=== PATIENT | female | born 1940 | race Caucasian/White ===

== ENCOUNTER 2016-09-12 01:51 | Inpatient (IN) | payer OTHER ==
[2016-09-12] VITALS (10 sets, daily range): BP systolic 107–140; BP diastolic 56–86
[~2016-09-12] VITALS: Ht 152.4 cm; Wt 80.0 kg
[~2016-09-12 01:51] MED LIST: ASPI-COR81 M1 PO; DILTIAZEM180 MG PO; FOSAMAX70 MG PO; MOTRIN800 MG PO; PAXIL10 MG PO; TRAMADOL HCL50 MG PO
[2016-09-12] MEDS ORDERED: CALCIUM 250+D1 EACH PO (01:59)
[2016-09-12] MEDS ORDERED: CENTRUM SILVER1 EAC1 PO (02:00)
[2016-09-12 02:42] LABS: BASO % 0.2 % (0.0-1.0); EOS % 0.1 % (1.0-4.0); HEMATOCRIT 40.4 % (37.0-47.0); HEMOGLOBIN 13.2 g/dl (12.0-16.0); IG # 0.1 10*3/uL (0.0-0.1); LYMPH # 0.5 10*3/uL (1.3-4.4); LYMPH % 2.6 % (27.0-41.0); MEAN CORPUSCULAR HGB 30.1 pg (27.0-31.0); MEAN CORPUSCULAR HGB CONC 32.7 g/dl (33.0-37.0); MEAN PLATELET VOLUME 9.6 fl (9.6-12.3); MONO # 1.3 10*3/uL (0.1-1.0); MONO % 6.6 % (3.0-9.0); NEUT # 16.9 10*3/uL (2.3-7.9); NEUT % 89.9 % (47.0-73.0); PLATELET COUNT AUTOMATED 285 10*3/uL (130-400); RED BLOOD COUNT 4.39 10*6/uL (4.10-5.10); RED CELL DISTRI WIDTH 12.9 % (0-14.5); WHITE BLOOD COUNT 18.8 10*3/uL (4.8-10.8)
[2016-09-12 02:57] LABS: ALBUMIN 3.9 gm/dl (3.1-4.5); BILIRUBIN, TOTAL 0.5 mg/dl (0.2-1.0); MAGNESIUM 1.9 mg/dL (1.5-2.1); POTASSIUM 3.7 mmol/L (3.5-5.1); TOTAL PROTEIN 8.1 gm/dL (6.4-8.2)
[2016-09-12 04:39] LABS: LA>2 REFLEX 2 HR DRAW NOW
[2016-09-12 05:16] LABS: LA>2 RFLX FOLLOW UP AT 2 HRS 2.4 mmol/L (0.4-2.0)
[2016-09-12 05:29] LABS: CKMB 2.4 ng/ml (0.5-3.6); CPK 139 U/L (26-192)
[2016-09-12 05:33] LABS: TROPONIN I < 0.015 ng/ml (<0.5)
[2016-09-12 06:34] LABS: BILIRUBIN NEGATIVE (NEGATIVE); BLOOD NEGATIVE (NEGATIVE); CLARITY SL CLOUDY (CLEAR); COLOR YELLOW (YELLOW); GLUCOSE NEGATIVE (NEGATIVE); KETONE NEGATIVE (NEGATIVE); LEUKO ESTERASE 1+ (NEGATIVE); NITRITE NEGATIVE (NEGATIVE); PH 5.5 (5.0-9.0); PROTEIN NEGATIVE (NEGATIVE); SPECIFIC GRAVITY >= 1.030 (1.005-1.030); UROBILINOGEN 0.2 E.U./dl (0.2-1.0)
[2016-09-12 06:50] LABS: WBC 16-20 wbc/hpf (0-5)
[2016-09-12 06:51] LABS: BACTERIA 2+; MUCOUS 1+; URINE REFLEX COMMENT YES (NO); YEAST 1+
[2016-09-12 07:10] LABS: LA>2 REFLEX 4 HR DRAW NOW
[2016-09-12 12:19] LABS: CKMB 2.5 ng/ml (0.5-3.6); CPK 141 U/L (26-192)
[2016-09-12 12:20] LABS: TROPONIN I < 0.015 ng/ml (<0.5)
[2016-09-12 18:46] LABS: CKMB 2.4 ng/ml (0.5-3.6); CPK 138 U/L (26-192)
[2016-09-12 18:57] LABS: TROPONIN I < 0.015 ng/ml (<0.5)
[2016-09-13] VITALS: BP 109/62
[2016-09-13 07:50] LABS: BASO % 0.2 % (0.0-1.0); EOS % 0.2 % (1.0-4.0); HEMATOCRIT 34.5 % (37.0-47.0); LYMPH # 0.8 10*3/uL (1.3-4.4); LYMPH % 16.3 % (27.0-41.0); MEAN CELL VOLUME 94.3 fl (81.0-99.0); MEAN CORPUSCULAR HGB 29.5 pg (27.0-31.0); MEAN CORPUSCULAR HGB CONC 31.3 g/dl (33.0-37.0); MEAN PLATELET VOLUME 9.4 fl (9.6-12.3); MONO # 0.8 10*3/uL (0.1-1.0); MONO % 15.1 % (3.0-9.0); NEUT # 3.4 10*3/uL (2.3-7.9); NEUT % 67.8 % (47.0-73.0); RED BLOOD COUNT 3.66 10*6/uL (4.10-5.10); RED CELL DISTRI WIDTH 13.2 % (0-14.5)
[2016-09-13 07:54] LABS: PLATELET COUNT AUTOMATED 190 10*3/uL (130-400)
[2016-09-13 07:55] LABS: HEMOGLOBIN 10.8 g/dl (12.0-16.0)
[2016-09-13 07:57] LABS: INTERNATIONAL NORM RATIO 1.1 (2.0-3.5); PROTHROMBIN TIME 11.6 SECONDS (9.0-12.4)
[2016-09-13 08:00] VITALS: BP 95/65
[2016-09-13 08:21] LABS: HEMOGLOBIN A1c 5.8 % (4.8-5.6)
[2016-09-13 08:38] LABS: ALBUMIN 2.9 gm/dl (3.1-4.5); ALKALINE PHOSPHATASE 68 U/L (45-117); BILIRUBIN, TOTAL 0.4 mg/dl (0.2-1.0); CARBON DIOXIDE 27 mmol/L (21-32); CHLORIDE 109 mmol/L (98-107); CHOLESTEROL 105 mg/dL (<200); EST GLOM FILT AFRICAN AMERICAN > 60 ml/min; FREE T4 1.27 ng/dl (0.76-1.46); GLUCOSE 93 mg/dL (65-99); HDL CHOLESTEROL 48 mg/dl (40-60); LDL CHOLESTEROL 51 mg/dL (9-159); MAGNESIUM 1.9 mg/dL (1.5-2.1); PHOSPHOROUS 1.5 mg/dL (2.5-4.9); POTASSIUM 3.5 mmol/L (3.5-5.1); SGOT/AST 25 IU/L (3-35); SGPT/ALT 31 U/L (12-78); SODIUM 145 mmol/L (136-145); TOTAL PROTEIN 6.2 gm/dL (6.4-8.2); TRIGLYCERIDES 29 mg/dl (<150); VLDL CHOLESTEROL 6 mg/dL (6-40)
[2016-09-13 08:44] LABS: BUN 13 mg/dl (7-24)
[2016-09-13 09:19] LABS: FOLIC ACID > 24.00 ng/mL (>5.38); VITAMIN D, 25-HYDROXY 33.6 ng/mL (30-100)
[2016-09-13 16:00] VITALS: BP 128/73
[2016-09-13 20:00] VITALS: BP 123/69
[2016-09-14] VITALS: BP 117/66
[2016-09-14 07:26] LABS: BASO % 0.3 % (0.0-1.0); EOS # 0.1 10*3/uL (0.0-0.4); EOS % 0.9 % (1.0-4.0); HEMATOCRIT 36.2 % (37.0-47.0); HEMOGLOBIN 11.6 g/dl (12.0-16.0); LYMPH # 1.9 10*3/uL (1.3-4.4); LYMPH % 32.5 % (27.0-41.0); MEAN CELL VOLUME 92.6 fl (81.0-99.0); MEAN CORPUSCULAR HGB 29.7 pg (27.0-31.0); MEAN PLATELET VOLUME 9.4 fl (9.6-12.3); MONO # 1.1 10*3/uL (0.1-1.0); MONO % 18.9 % (3.0-9.0); NEUT # 2.8 10*3/uL (2.3-7.9); NEUT % 47.1 % (47.0-73.0); PLATELET COUNT AUTOMATED 218 10*3/uL (130-400); RED BLOOD COUNT 3.91 10*6/uL (4.10-5.10); WHITE BLOOD COUNT 5.9 10*3/uL (4.8-10.8)
[2016-09-14 08:00] VITALS: BP 106/60
[2016-09-14 08:02] LABS: ALKALINE PHOSPHATASE 81 U/L (45-117); BILIRUBIN, TOTAL 0.4 mg/dl (0.2-1.0); BUN 9 mg/dl (7-24); CARBON DIOXIDE 32 mmol/L (21-32); CHLORIDE 107 mmol/L (98-107); EST GLOM FILT AFRICAN AMERICAN > 60 ml/min; GLUCOSE 84 mg/dL (65-99); POTASSIUM 3.4 mmol/L (3.5-5.1); SGOT/AST 77 IU/L (3-35); SGPT/ALT 56 U/L (12-78); SODIUM 144 mmol/L (136-145); TOTAL PROTEIN 6.1 gm/dL (6.4-8.2)
[2016-09-14 12:00] VITALS: BP 120/60
[2016-09-14 16:00] VITALS: BP 102/54
[2016-09-14 20:00] VITALS: BP 113/61
[2016-09-15] VITALS: BP 124/84
[2016-09-15 07:23] LABS: BUN 7 mg/dl (7-24); CARBON DIOXIDE 30 mmol/L (21-32); CHLORIDE 106 mmol/L (98-107); EST GLOM FILT AFRICAN AMERICAN > 60 ml/min; GLUCOSE 96 mg/dL (65-99); POTASSIUM 3.2 mmol/L (3.5-5.1); SODIUM 144 mmol/L (136-145)
[2016-09-15 08:00] VITALS: BP 111/62
[2016-09-15] MEDS ORDERED: FLAGYL500 MG PO (11:40)
[2016-09-15] MEDS ORDERED: CIPRO500 MG PO (11:40)
[2016-09-15 12:00] VITALS: BP 123/73
== END 2016-09-15 12:56 | disposition home or self-care (01) | DRG 871 ==
LOC: ED 01:51 → EDHOLD 03:21 → 4E 03:21
PROVIDERS: Emergency Medicine Emergency Medical Services; Family Medicine Adult Medicine; Internal Medicine
DX: A41.9 Sepsis, unspecified organism (principal); N17.0 Acute kidney failure with tubular necrosis; E87.0 Hyperosmolality and hypernatremia; I47.1 Supraventricular tachycardia; E44.0 Moderate protein-calorie malnutrition; R65.20 Severe sepsis without septic shock; K52.9 Noninfective gastroenteritis and colitis, unspecified; R73.9 Hyperglycemia, unspecified; F41.0 Panic disorder [episodic paroxysmal anxiety]; D64.9 Anemia, unspecified; E83.51 Hypocalcemia; E83.39 Other disorders of phosphorus metabolism; E87.6 Hypokalemia; M19.90 Unspecified osteoarthritis, unspecified site; Z68.34 Body mass index [BMI] 34.0-34.9, adult; Z90.49 Acquired absence of other specified parts of digestive tract; Z98.890 Other specified postprocedural states; Z88.6 Allergy status to analgesic agent; Z79.82 Long term (current) use of aspirin; Z79.899 Other long term (current) drug therapy; Z80.8 Family history of malignant neoplasm of other organs or systems

== ENCOUNTER → 2016-11-11 | Outpatient (CLI) | payer OTHER ==
[~2016-11-11] MED LIST changes: +CALCIUM 250+D1 EACH PO; +CENTRUM SILVER1 EAC1 PO; +CIPRO500 MG PO; +FLAGYL500 MG PO
--- NOTE | ~2016-11-11 | ST ---
[place], [place] EXERCISE STRESS TEST REPORT NAME: MICHAEL WILL UNIT #: [id number] ROOM: DOCTOR: DENY GOLDEN MD BIRTHDATE: [birth year] DOS: 11/11/2016 INDICATIONS: Palpitations and dyspnea. PROCEDURE: The patient exercised on a full Keo protocol stress test for 4 minutes and achieved a maximum heart rate of 147, which represented 101% of her maximum predicted heart rate at a workload of 7 mets. She stopped for dyspnea and had no chest pain. The resting electrocardiogram showed sinus rhythm with frequent isolated PVCs. She did have PVCs throughout exercise, but no ventricular tachycardia or SVT. No diagnostic ST or T-wave changes were seen. One minute prior to completion of exercise protocol, radionuclide was given intravenously. IMPRESSION: 1. Adequate exercise capacity without chest pain or diagnostic electrocardiographic changes. 2. Frequent isolated premature ventricular contractions throughout the study. No supraventricular tachycardia was seen. No prolonged pauses. 3. Radionuclide was administered. Please see the separate imaging report for further details of the patient's stress test results. DENY GOLDEN MD CM:STRESS:EXERCISE STRESS TEST REPORT [id number] DENY GOLDEN MD
== END | disposition home or self-care (01) ==
LOC: CARD 03:46
DX: R06.02 Shortness of breath (principal); R00.2 Palpitations; R94.31 Abnormal electrocardiogram [ECG] [EKG]

== ENCOUNTER → 2017-01-03 | Outpatient (CLI) | payer OTHER | END | disposition home or self-care (01) | LOC: RAD 02:39 | DX: M81.0 Age-related osteoporosis without current pathological fracture (principal) ==

== ENCOUNTER → 2017-05-16 | Outpatient (CLI) | payer OTHER | END | disposition home or self-care (01) | LOC: MAMMO 11:30 | DX: Z12.31 Encounter for screening mammogram for malignant neoplasm of breast (principal) ==

== ENCOUNTER → 2018-01-17 | Outpatient (CLI) | payer OTHER ==
[2018-01-17 09:51] LABS: HEMATOCRIT 39.5 % (37.0-47.0); HEMOGLOBIN 12.8 g/dl (12.0-16.0); MEAN CELL VOLUME 95.2 fl (81.0-99.0); MEAN CORPUSCULAR HGB 30.8 pg (27.0-31.0); MEAN CORPUSCULAR HGB CONC 32.4 g/dl (33.0-37.0); MEAN PLATELET VOLUME 9.7 fl (9.6-12.3); RED BLOOD COUNT 4.15 10*6/uL (4.10-5.10); RED CELL DISTRI WIDTH 12.6 % (0-14.5); WHITE BLOOD COUNT 6.7 10*3/uL (4.8-10.8)
[2018-01-17 10:12] LABS: ALBUMIN 3.6 gm/dl (3.1-4.5); ALKALINE PHOSPHATASE 95 U/L (45-117); BUN 18 mg/dl (7-24); CHLORIDE 108 mmol/L (98-107); CHOLESTEROL 198 mg/dL (<200); CREATININE 0.94 mg/dL (0.55-1.02); HDL CHOLESTEROL 49 mg/dl (40-60); LDL CHOLESTEROL 124 mg/dL (9-159); POTASSIUM 4.1 mmol/L (3.5-5.1); SGOT/AST 12 IU/L (3-35); SGPT/ALT 19 U/L (12-78); SODIUM 144 mmol/L (136-145); TOTAL PROTEIN 7.5 gm/dL (6.4-8.2); TRIGLYCERIDES 126 mg/dl (<150); VLDL CHOLESTEROL 25 mg/dL (6-40)
== END | disposition home or self-care (01) ==
LOC: LAB 09:25
DX: M81.0 Age-related osteoporosis without current pathological fracture (principal); I47.1 Supraventricular tachycardia; H61.20 Impacted cerumen, unspecified ear; R79.89 Other specified abnormal findings of blood chemistry

== ENCOUNTER → 2018-05-24 | Outpatient (CLI) | payer OTHER | END | disposition home or self-care (01) | LOC: MAMMO 05-10 10:00 | DX: Z12.31 Encounter for screening mammogram for malignant neoplasm of breast (principal); R92.0 Mammographic microcalcification found on diagnostic imaging of breast ==

== ENCOUNTER → 2019-06-17 | Outpatient (CLI) | payer OTHER ==
[2019-06-17 09:17] LABS: HEMATOCRIT 40.8 % (37.0-47.0); HEMOGLOBIN 12.8 g/dl (12.0-16.0); MEAN CELL VOLUME 96.9 fl (81.0-99.0); MEAN CORPUSCULAR HGB 30.4 pg (27.0-31.0); MEAN CORPUSCULAR HGB CONC 31.4 g/dl (33.0-37.0); MEAN PLATELET VOLUME 9.7 fl (9.6-12.3); RED BLOOD COUNT 4.21 10*6/uL (4.10-5.10); RED CELL DISTRI WIDTH 13.2 % (0-14.5)
[2019-06-17 09:18] LABS: ALBUMIN 3.5 gm/dl (3.1-4.5); ALKALINE PHOSPHATASE 106 U/L (45-117); BUN 21 mg/dl (7-24); CHLORIDE 105 mmol/L (98-107); CHOLESTEROL 212 mg/dL (<200); CREATININE 0.84 mg/dL (0.55-1.02); HDL CHOLESTEROL 56 mg/dl (40-60); LDL CHOLESTEROL 136 mg/dL (9-159); SGOT/AST 13 IU/L (3-35); SGPT/ALT 24 U/L (12-78); SODIUM 139 mmol/L (136-145); TOTAL PROTEIN 7.3 gm/dL (6.4-8.2); TRIGLYCERIDES 98 mg/dl (<150); VLDL CHOLESTEROL 20 mg/dL (6-40)
[2019-06-17 09:44] LABS: FREE T4 0.94 ng/dl (0.76-1.46)
== END | disposition home or self-care (01) ==
LOC: LAB 08:25
PROVIDERS: Physician Assistant
DX: E55.9 Vitamin D deficiency, unspecified (principal); M81.0 Age-related osteoporosis without current pathological fracture; I47.1 Supraventricular tachycardia; I10 Essential (primary) hypertension

== ENCOUNTER → 2020-01-29 | Outpatient (CLI) | payer OTHER | END | disposition home or self-care (01) | LOC: LAB 09:51 → CARD 10:30 | DX: I47.1 Supraventricular tachycardia (principal) ==

== ENCOUNTER → 2020-02-06 | Outpatient (CLI) | payer OTHER | END | disposition home or self-care (01) | LOC: MAMMO 08:38 | DX: Z12.31 Encounter for screening mammogram for malignant neoplasm of breast (principal) ==

== ENCOUNTER → 2020-07-16 | Outpatient (CLI) | payer OTHER ==
[~2020-07-16] MED LIST changes: +CARTIA XT300 MG PO; -DILTIAZEM180 MG PO; +DILTIAZEM240 M1 PO; +PROMETHAZINE DM
== END | disposition home or self-care (01) ==
LOC: COVID19 10:50
PROVIDERS: ATTEND Physician Assistant
DX: U07.1 COVID-19 (principal)

== ENCOUNTER 2020-07-19 15:37 | Inpatient (IN) | payer OTHER ==
[~2020-07-19] VITALS: Ht 152 cm; Wt 80.8 kg
[~2020-07-19 15:37] MED LIST changes: -CARTIA XT300 MG PO; -PROMETHAZINE DM
[2020-07-19 15:59] VITALS: BP 106/64
[2020-07-19] MEDS ORDERED: PROMETHAZINE DM (16:08)
[2020-07-19] MEDS ORDERED: CARTIA XT300 MG PO (16:09)
[2020-07-19 16:34] LABS: BASO % 0.2 % (0.0-1.0); LYMPH # 0.7 10*3/uL (1.3-4.4); LYMPH % 11.8 % (27.0-41.0); MEAN CORPUSCULAR HGB 29.6 pg (27.0-31.0); MEAN CORPUSCULAR HGB CONC 31.5 g/dl (33.0-37.0); MEAN PLATELET VOLUME 9.4 fl (9.6-12.3); MONO # 0.5 10*3/uL (0.1-1.0); MONO % 8.9 % (3.0-9.0); NEUT # 4.3 10*3/uL (2.3-7.9); NEUT % 78.7 % (47.0-73.0); PLATELET COUNT AUTOMATED 206 10*3/uL (130-400); RED BLOOD COUNT 4.36 10*6/uL (4.10-5.10); RED CELL DISTRI WIDTH 12.7 % (0-14.5); WHITE BLOOD COUNT 5.5 10*3/uL (4.8-10.8)
--- NOTE | 2020-07-19 16:45 | NUR ---
eNTERED ed AT 1000 STATUSB pOST FALL. hX OF DEMENTIA. lABS DRAWN, ct DONE, ua REVEALS uti. VSS remained stable throughot time in ER. POA updated 2-3 times. Desires to have PASSWORD of "Pankaj." HX of AFib. Lungs clear. Incontinebt of stool x1,requested diaper.IV Patent. Report called to [facility] rm 506 bed 2. Dontrell COLLINS. Transfer held ndue to MS supervisor microwave requesting antibx be given prior to transfer.
[2020-07-19 16:47] LABS: ALBUMIN 3.2 gm/dl (3.1-4.5); ALKALINE PHOSPHATASE 123 U/L (45-117); BUN 18 mg/dl (7-24); CHLORIDE 110 mmol/L (98-107); CPK 49 U/L (26-192); CREATININE 0.79 mg/dL (0.55-1.02); LDH 275 U/L (84-246); POTASSIUM 3.7 mmol/L (3.5-5.1); SGOT/AST 52 IU/L (3-35); SGPT/ALT 51 U/L (12-78); SODIUM 142 mmol/L (136-145); TOTAL PROTEIN 7.4 gm/dL (6.4-8.2)
[2020-07-19 16:49] LABS: ACT PARTIAL THROMBO TIME 25.6 SECONDS (20.0-32.1)
[2020-07-19 16:53] LABS: TROPONIN I < 0.015 ng/ml (<0.045)
[2020-07-19 18:09] LABS: ABG BASE EXCESS 3.3 mmol/L (-2.0-2.0); ARTERIAL BLOOD GAS PH 7.419 (7.35-7.45)
[2020-07-19 18:34] LABS: BILIRUBIN Negative (Negative); BLOOD Negative (Negative); CLARITY Clear (Clear); COLOR Yellow (Yellow); GLUCOSE Negative (Negative); KETONE Trace (Negative); LEUKO ESTERASE 2+ (Negative); NITRITE Negative (Negative); SPECIFIC GRAVITY >= 1.030 (1.001-1.030)
[2020-07-19 18:48] LABS: BACTERIA 1+; EPITHELIAL CELLS 21-30; MUCOUS TRACE
--- NOTE | 2020-07-19 19:10 | NUR ---
REPORT REC'D. PATIENT NOTED TO BE IN ROOM 3, PATIENT COVID POSITIVE. AWAKE, ALERT, AWAITING BED AVAILIBILITY FOR ADMISSION.
--- NOTE | 2020-07-19 19:12 | NUR ---
SBAR REPORT GIVEN TO DHARMESH
[2020-07-19 19:43] VITALS: BP 117/65
--- NOTE | 2020-07-19 19:43 | NUR ---
INTRODUCED SELF TO PATIENT, VITAL SIGNS OBTAINED, STABLE FOLLOWS 117/65 PULSE 82, RESPIRATIONS 20, OXYGEN SAT 95% W/NC IN PLACE. PATIENT C/O NAUSEA AND WEAKNESS, DENIES PAIN CURRENTLY. SIDERAILS UP TIMES TWO, CALLBELL WITHIN REACH, PATIENT VERBALIZES UNDERSTANDING OF NEED TO CALL FOR RN PRIOR TO USING BEDSIDE COMMODE.
--- NOTE | 2020-07-19 21:53 | NUR ---
ADMITTING PHYSICIAN TO BEDSIDE FOR EVAL.
--- NOTE | 2020-07-20 01:09 | NUR ---
PT SITTING UP IN BED ICE CHIPS GIVEN. NAD. NO NEEDS OR CONCERNS VOICED. WILL CONTINUE TO MONITOR.
[2020-07-20 01:39] VITALS: BP 113/70
--- NOTE | 2020-07-20 01:44 | NUR ---
LOVENOX 40MG SQ TO LEFT ABD
--- NOTE | 2020-07-20 01:45 | NUR ---
HEAD TO TOE ASSESSMENT COMPLETED, PT ORIENTED TO ROOM, PT DENIES ANY PAIN OR DISCOMFORT, PT ALERT AND ORIENTED X 4, CALL LIGHT IN REACH, PT STATES SHE JUST WANTS TO GO TO SLEEP, INSTRUCTED PT HOW TO USE BED CONTROLS. PT PLEASANT, NO DISTRESS NOTED, PT'S LUNGS DIMINSHED BIBASILAR. WILL CONTINUE TO MONITOR FOR SAFETY.
--- NOTE | 2020-07-20 01:51 | NUR ---
ROCEPHIN 1G IVP OVER 5 MINUTES, UNABLE TO CHART ON OCT.
--- NOTE | 2020-07-20 02:20 | NUR ---
ZITHROMAX 500MG/250CC'S VOLUME UP ON PUMP TO INFUSE OVER ONE HOUR, UNABLE TO DOCUMENT ON OCT. PATIENT TO FLOOR, REPORT UPDATED TO NURSE.
[2020-07-20 06:38] LABS: BASO % 0.2 % (0.0-1.0); HEMATOCRIT 41.3 % (37.0-47.0); LYMPH # 0.4 10*3/uL (1.3-4.4); LYMPH % 7.1 % (27.0-41.0); MEAN CELL VOLUME 94.9 fl (81.0-99.0); MEAN CORPUSCULAR HGB 29.4 pg (27.0-31.0); MEAN PLATELET VOLUME 9.4 fl (9.6-12.3); MONO # 0.3 10*3/uL (0.1-1.0); MONO % 4.1 % (3.0-9.0); NEUT # 5.3 10*3/uL (2.3-7.9); NEUT % 88.1 % (47.0-73.0); PLATELET COUNT AUTOMATED 204 10*3/uL (130-400); RED BLOOD COUNT 4.35 10*6/uL (4.10-5.10); RED CELL DISTRI WIDTH 12.7 % (0-14.5); WHITE BLOOD COUNT 6.1 10*3/uL (4.8-10.8)
[2020-07-20 06:54] LABS: ALBUMIN 3.1 gm/dl (3.1-4.5); BUN 17 mg/dl (7-24); CHLORIDE 108 mmol/L (98-107); CHOLESTEROL 139 mg/dL (<200); CREATININE 0.78 mg/dL (0.55-1.02); POTASSIUM 4.3 mmol/L (3.5-5.1); SGOT/AST 55 IU/L (3-35); SODIUM 143 mmol/L (136-145); TRIGLYCERIDES 62 mg/dl (<150); VLDL CHOLESTEROL 12 mg/dL (6-40)
[2020-07-20 06:57] LABS: ALKALINE PHOSPHATASE 133 U/L (45-117); HDL CHOLESTEROL 51 mg/dl (40-60); LDL CHOLESTEROL 76 mg/dL (9-159); SGPT/ALT 54 U/L (12-78)
[2020-07-20 08:00] VITALS: BP 114/60
--- NOTE | 2020-07-20 08:09 | NUR ---
CONSULTS TO ID AND PULM CALLED AND COMPLETED.
[2020-07-20 09:53] LABS: VITAMIN D, 25-HYDROXY 69.4 ng/mL (30-100)
[2020-07-20 12:00] VITALS: BP 113/58
--- NOTE | 2020-07-20 13:37 | NUR ---
Spray Maker in to talk to patient. Patient states lives at home with . There are no steps in the home. Physician: mandy ogden [facility] Home health services: none Patient's level of ADLs: INDEPENDENT Patient has working utilities: all working DME: none Follow-up physician's appointment after d/c: will be made by hospitalist nurse director upon discharge Does patient want to access PORTAL?: no Discharge plan discussed with patient, she lives at home with , she is independent in adls and ambulation, no home oxygen, she states she will return home when discharged and denies any home needs, case management will follow for any change in condition or any home needs. GLENNA CHRISTIAN
[2020-07-20 16:00] VITALS: BP 121/62
--- NOTE | 2020-07-20 17:58 | NUR ---
PT HR IN 120'S FOR A SHORT TIME. PT HAVING BM AT THE TIME HR WAS ELEVATED. PT RESTING COMFORTABLY IN BED A THIS TIME
[2020-07-20 20:00] VITALS: BP 119/70
[2020-07-21] VITALS: BP 126/66
[2020-07-21 03:00] LABS: ABG BASE EXCESS 2.5 mmol/L (-2.0-2.0); ARTERIAL BLOOD GAS PH 7.425 (7.35-7.45)
[2020-07-21 06:27] LABS: ALBUMIN 2.8 gm/dl (3.1-4.5); ALKALINE PHOSPHATASE 112 U/L (45-117); BUN 24 mg/dl (7-24); CHLORIDE 111 mmol/L (98-107); CREATININE 0.69 mg/dL (0.55-1.02); POTASSIUM 3.8 mmol/L (3.5-5.1); SGOT/AST 46 IU/L (3-35); SGPT/ALT 49 U/L (12-78); SODIUM 145 mmol/L (136-145)
[2020-07-21 06:35] LABS: RED CELL DISTRI WIDTH 12.6 % (0-14.5)
[2020-07-21 06:36] LABS: HEMATOCRIT 38.3 % (37.0-47.0); LYMPH # 0.5 10*3/uL (1.3-4.4); LYMPH % 7.1 % (27.0-41.0); MEAN CELL VOLUME 94.3 fl (81.0-99.0); MEAN CORPUSCULAR HGB 29.6 pg (27.0-31.0); MEAN CORPUSCULAR HGB CONC 31.3 g/dl (33.0-37.0); MEAN PLATELET VOLUME 9.8 fl (9.6-12.3); MONO # 0.6 10*3/uL (0.1-1.0); NEUT # 5.9 10*3/uL (2.3-7.9); NEUT % 84.5 % (47.0-73.0); PLATELET COUNT AUTOMATED 226 10*3/uL (130-400); RED BLOOD COUNT 4.06 10*6/uL (4.10-5.10)
[2020-07-21 07:30] LABS: ABG BASE EXCESS 3.9 mmol/L (-2.0-2.0); ARTERIAL BLOOD GAS PH 7.431 (7.35-7.45)
[2020-07-21 08:00] VITALS: BP 133/73
--- NOTE | 2020-07-21 10:20 | NUR ---
PT AAOX3. PT'S POX WILL DROP INTO 70'S ON 10 LITER HIGH HIREN OXYGEN WITH ANY EXERTION OR EVEN SPEAKING. PT INSTRUCTED ON BENEFITS OF PRONING AND PT AGREED TO TRY. PT PRONED ON 10 LITERS HIGH HIREN. POX UP TO 90%. DR JESSICA IN TO SEE PT. UPDATED HER ON PT'S CONDITION. PLACED PT BACK TO BIPAP. DR COLEY IN TO SEE PT AFTER DR JESSIAC LEFT. UPDATED DR COLEY ON PT'S DROPPING POX. ORDER RECEIVED TO TRANSFER PT TO ICCU. PT TRANSFERED TO ICCU. PT REPORT GIVEN TO RECEIVING NURSE.
--- NOTE | 2020-07-21 10:30 | NUR ---
Received into icu-1 via bed. Alert and oriented times three. Remains on bi-pap 16/12 with fio2 80%. Encouraged to prone. Did lay on her side. Pb rales heard in bilateral lower lung sales.
[2020-07-21 12:00] VITALS: BP 137/74
[2020-07-21 13:39] LABS: ABG BASE EXCESS 2.8 mmol/L (-2.0-2.0); ARTERIAL BLOOD GAS PH 7.426 (7.35-7.45)
[2020-07-21 16:00] VITALS: BP 165/79
[2020-07-21 17:45] LABS: ABG BASE EXCESS 4.2 mmol/L (-2.0-2.0); ARTERIAL BLOOD GAS PH 7.439 (7.35-7.45)
--- NOTE | 2020-07-21 19:09 | NUR ---
DR. CLAIRE NOTIFIED OF BP 160'S SYSTOLIC AND HEART RATE LOW 100'S
--- NOTE | 2020-07-21 19:12 | NUR ---
CHART CHECK COMPLETE.
[2020-07-21 19:56] LABS: ABG BASE EXCESS 3.4 mmol/L (-2.0-2.0); ARTERIAL BLOOD GAS PH 7.455 (7.35-7.45)
[2020-07-21 20:00] VITALS: BP 145/83
--- NOTE | 2020-07-21 20:29 | NUR ---
ARABELLA FROM [facility] DEPT, NOTIFIED DR COLEY OF ABG RESULTS.
--- NOTE | 2020-07-21 20:33 | NUR ---
PT RESTING ON 15 L HIGH FLOW NASAL CANNULA.
--- NOTE | 2020-07-21 22:31 | NUR ---
PT PLACED BACK ON BIPAP MACHINE ORDERED.
[2020-07-22] VITALS: BP 155/75
--- NOTE | 2020-07-22 02:23 | NUR ---
PT TOILETED FOR 300 CC URINE ON BEDPAN. NO ACUTE DISTRESS.
[2020-07-22 04:00] VITALS: BP 139/88
--- NOTE | 2020-07-22 05:57 | NUR ---
PT HAS SLEPT MOST OF THE NIGHT. AWAKENED EASILY FOR NURSING ASSESSMENTS/CARE. HAS WORN BIPAP ALL NIGHT. ICE CHIPS GIVEN AND RETURNED TO BIPAP THEREAFTER. SHE IS AWARE OF PLAN FOR ABG'S THIS AM. SHE SAYS SHE IS GOING TO SEE IF "THEY'LL LET (HER) HAVE SOMETHING FOR NERVES." STATES SHE HAS A LOT ON HER MIND WITH OTHER SICK FAMILY MEMBERS. HER CELL PHONE AT BEDSIDE.
[2020-07-22 06:19] LABS: BASO % 0.1 % (0.0-1.0); HEMATOCRIT 38.5 % (37.0-47.0); LYMPH # 0.5 10*3/uL (1.3-4.4); LYMPH % 5.4 % (27.0-41.0); MEAN CORPUSCULAR HGB CONC 32.2 g/dl (33.0-37.0); MEAN PLATELET VOLUME 9.9 fl (9.6-12.3); MONO % 10.8 % (3.0-9.0); NEUT % 83.2 % (47.0-73.0); PLATELET COUNT AUTOMATED 264 10*3/uL (130-400); RED BLOOD COUNT 4.14 10*6/uL (4.10-5.10); RED CELL DISTRI WIDTH 12.6 % (0-14.5); WHITE BLOOD COUNT 9.6 10*3/uL (4.8-10.8)
[2020-07-22 06:38] LABS: ALBUMIN 2.8 gm/dl (3.1-4.5); BUN 26 mg/dl (7-24); CHLORIDE 113 mmol/L (98-107); LDH 408 U/L (84-246); POTASSIUM 3.7 mmol/L (3.5-5.1); SGOT/AST 53 IU/L (3-35); SGPT/ALT 54 U/L (12-78); SODIUM 146 mmol/L (136-145); TOTAL PROTEIN 6.9 gm/dL (6.4-8.2)
[2020-07-22 06:39] LABS: ALKALINE PHOSPHATASE 121 U/L (45-117); CREATININE 0.61 mg/dL (0.55-1.02)
--- NOTE | 2020-07-22 07:30 | NUR ---
PER PT REQUEST, POST ABG DRAW PT TAKEN OFF BIPAP AND PLACED ON 15L HFNC. MARIELLE. WELL AT THIS TIME, SATS 90-91%
[2020-07-22 07:49] LABS: ABG BASE EXCESS 3.5 mmol/L (-2.0-2.0); ARTERIAL BLOOD GAS PH 7.436 (7.35-7.45)
[2020-07-22 08:00] VITALS: BP 136/82
--- NOTE | 2020-07-22 08:00 | NUR ---
PT AAOX3. VSS. PT REMIANS ON BIPAP FIO2 70%. POX 94%. PT DESATS INTO 70'S WITH MINIMAL EXERTION. FINE PB RALES NOTED IN RIGHT BASE. PT STATES SHE HAS AN INFREQUENT COUGH PRODUCTIVE OF YELOWISH-WHITE MUCUS. ABD. SOFT WITH ACTIVE BOWEL SOUNDS. PT HAS HAD A FEW DIARRHEA STOOLS. BILATERAL LOWER LEG EDEMA NOTED. WILL CONTINUE TO MONITOR PT.
--- NOTE | 2020-07-22 09:00 | NUR ---
patient is a covid +, on bipap, she would like to return home when discharged, case management will follow in case patient would need another discharge plan. case management will follow
--- NOTE | 2020-07-22 09:30 | NUR ---
DR JESSICA IN TO SEE PT.
--- NOTE | 2020-07-22 10:30 | NUR ---
DR COLEY IN TO SEE PT. NEW ORDERS RECEIVED.
[2020-07-22 12:00] VITALS: BP 133/61
--- NOTE | 2020-07-22 14:20 | NUR ---
MEDICATED PT PER 1X ORDER WITH XANAX FOR PT'S C/O ANXIETY. KDUR 40MEQ GIVEN TO PT EARLIER PER ORDER.
[2020-07-22 16:00] VITALS: BP 129/59
--- NOTE | 2020-07-22 16:09 | NUR ---
PT RESTING. NO ACUTE DISTRESS NOTED.
[2020-07-22 20:00] VITALS: BP 132/60
--- NOTE | 2020-07-22 20:00 | NUR ---
PT RESTING IN BED AWAKE, A&O, PLEASANT AND COOPERATIVE. RESP LAOBRED WITH MINIMAL EXERTION. NO ACUTE DISTRESS NOTED. NO COMPLAINTS VOICED. ART LINE AND HEPLOCK PATENT.
[2020-07-23] VITALS (15 sets, daily range): BP systolic 72–161; BP diastolic 43–77
[2020-07-23 06:17] LABS: BASO % 0.1 % (0.0-1.0); HEMATOCRIT 37.5 % (37.0-47.0); LYMPH # 0.4 10*3/uL (1.3-4.4); LYMPH % 3.6 % (27.0-41.0); MEAN CELL VOLUME 92.8 fl (81.0-99.0); MEAN CORPUSCULAR HGB 29.2 pg (27.0-31.0); MEAN CORPUSCULAR HGB CONC 31.5 g/dl (33.0-37.0); MEAN PLATELET VOLUME 10.1 fl (9.6-12.3); NEUT # 9.7 10*3/uL (2.3-7.9); NEUT % 86.7 % (47.0-73.0); PLATELET COUNT AUTOMATED 240 10*3/uL (130-400); RED BLOOD COUNT 4.04 10*6/uL (4.10-5.10); RED CELL DISTRI WIDTH 12.6 % (0-14.5); WHITE BLOOD COUNT 11.2 10*3/uL (4.8-10.8)
[2020-07-23 06:37] LABS: ALBUMIN 2.7 gm/dl (3.1-4.5); ALKALINE PHOSPHATASE 120 U/L (45-117); BUN 26 mg/dl (7-24); CHLORIDE 115 mmol/L (98-107); LDH 502 U/L (84-246); SGOT/AST 50 IU/L (3-35); SGPT/ALT 51 U/L (12-78); SODIUM 149 mmol/L (136-145); TOTAL PROTEIN 6.8 gm/dL (6.4-8.2)
[2020-07-23 07:22] LABS: ABG BASE EXCESS 3.4 mmol/L (-2.0-2.0); ARTERIAL BLOOD GAS PH 7.396 (7.35-7.45)
--- NOTE | 2020-07-23 08:00 | NUR ---
AM ASSESSMENT DONE - PATIENT DISCUSSED PRONING & BIPAP USE D/T SATS DROPPING TO THE 70'S ON HFNC..PATIENT VOICED UNDERSTANDING
[2020-07-23 13:10] LABS: ABG BASE EXCESS 4.7 mmol/L (-2.0-2.0); ARTERIAL BLOOD GAS PH 7.442 (7.35-7.45)
--- NOTE | 2020-07-23 14:30 | NUR ---
DISCUSSED WITH THE PATIENT THAT SHE NEEDED TO GO ON THE VENTILATOR & A MLC WAS TO BE PLACED - VOICED UNDERSTANDING & AGREED. DAUGHTER VITOR CALLED AND SHE AGREED WITH THE TREATMENT
--- NOTE | 2020-07-23 15:00 | NUR ---
Infomed consent obtained from patient by Dr. COLEY for elective intubation. Patient intubated with Other endotracheal tube orally X 1 attempts. Patient sedated with SUCC & DIPRIVAN Respiratory therapy at bedside. Crash cart with emergency drugs available. Endotracheal tube inflated with 10cc's. Lungs auscultated for equality of breath sounds. Tube secured with Trach Ties at 21cm's. at level of LIP. Patient tolerated procedure FAIR. Portable chest X-ray obtained and reviewed for tube placement. Patient connected to ventilator CMV mode, 380 tidal volume, 100 FIO2, 10 PEEP, and 0 pressure support. PATIENT ALSO AGREED TO MLC WHICH WAS PLACED BY DR LORA IN [facility] WITHOUT DIFFICULTY BRENNAN JOEL
--- NOTE | 2020-07-23 17:25 | NUR ---
AWAITING CXR REPORT FOR PLACEMENT OF LINES PRIOR TO PRONING
[2020-07-23 17:27] LABS: ARTERIAL BLOOD GAS PH 7.395 (7.35-7.45)
--- NOTE | 2020-07-23 19:00 | NUR ---
PATIENT PRONEDP KENDY AT 50mcg & NIMBEX AT 0.7..ABG TO BE DONE 2 HOURS AFTER PRONING PER DR COLEY
[2020-07-23 20:35] LABS: ABG BASE EXCESS 2.9 mmol/L (-2.0-2.0); ARTERIAL BLOOD GAS PH 7.364 (7.35-7.45)
--- NOTE | 2020-07-23 22:00 | NUR ---
PATIENT MOVING AROUND AND BREATHING ABOVE THE VENT NIMBEX INCREASED TO 2 MCQ'S AT THIS TIME.
[2020-07-24] VITALS (26 sets, daily range): BP systolic 94–172; BP diastolic 52–85
[2020-07-24 06:05] LABS: BASO % 0.1 % (0.0-1.0); LYMPH # 0.4 10*3/uL (1.3-4.4); LYMPH % 5.9 % (27.0-41.0); MEAN CELL VOLUME 94.2 fl (81.0-99.0); MEAN CORPUSCULAR HGB 29.6 pg (27.0-31.0); MEAN CORPUSCULAR HGB CONC 31.5 g/dl (33.0-37.0); MEAN PLATELET VOLUME 10.6 fl (9.6-12.3); MONO # 0.6 10*3/uL (0.1-1.0); NEUT % 85.2 % (47.0-73.0); PLATELET COUNT AUTOMATED 222 10*3/uL (130-400); RED BLOOD COUNT 3.61 10*6/uL (4.10-5.10); RED CELL DISTRI WIDTH 12.5 % (0-14.5); WHITE BLOOD COUNT 7.1 10*3/uL (4.8-10.8)
[2020-07-24 06:18] LABS: ALBUMIN 1.8 gm/dl (3.1-4.5); ALKALINE PHOSPHATASE 80 U/L (45-117); BUN 24 mg/dl (7-24); CHLORIDE 121 mmol/L (98-107); CPK 33 U/L (26-192); LDH 339 U/L (84-246); POTASSIUM 3.1 mmol/L (3.5-5.1); SGOT/AST 33 IU/L (3-35); SGPT/ALT 39 U/L (12-78); SODIUM 156 mmol/L (136-145); TOTAL PROTEIN 4.7 gm/dL (6.4-8.2)
--- NOTE | 2020-07-24 06:54 | NUR ---
CALLED DOCTOR BLAIR WITH [facility] HE SAID THANK YOU.
--- NOTE | 2020-07-24 07:27 | NUR ---
PHYSICAL THERAPY Screen received pt admitted with pneumonia + for COVID per medical notes pt was intubated 07/23, please consult PT as pt medically appropriate thank you Nicole Alas PT
[2020-07-24 07:34] LABS: ABG BASE EXCESS 3.9 mmol/L (-2.0-2.0); ARTERIAL BLOOD GAS PH 7.419 (7.35-7.45)
--- NOTE | 2020-07-24 10:11 | NUR ---
Nursing screen received and chart was reviewed. Patient is a 80 y/o F admitted with pnemonia and (+) Cornoavirus. Brady has a past medical history of arthritis, anxiety, depression, normacytic anemia and SVT. Patient was indubated on 07/23. Please send OT orders when patient is medically appropraite. Thank you. Karolina Lubin OTR/L
--- NOTE | 2020-07-24 10:27 | NUR ---
CONDITION DISCUSSED WITH DR COLEY. ORDERS RECEIVED.
--- NOTE | 2020-07-24 12:00 | NUR ---
TUBE FEEDINGS ORDERED AT 20CC/HR.
--- NOTE | 2020-07-24 12:27 | NUR ---
DR COLEY VISITS.
[2020-07-24 13:07] LABS: ABG BASE EXCESS 3.8 mmol/L (-2.0-2.0); ARTERIAL BLOOD GAS PH 7.357 (7.35-7.45)
--- NOTE | 2020-07-24 13:37 | NUR ---
FAMILY MEMBER, VITOR, CALLS IN. UPDATED ON PT CONDITION.
--- NOTE | 2020-07-24 18:31 | NUR ---
DUODERM TO PT'S FACE TO PREPARE FOR PRONING AT 1900.
--- NOTE | 2020-07-24 18:32 | NUR ---
PT TACHYCARDIC W/ INCREASED BP, AFTER TURNING, VERSED 5MG IV GIVEN W/ GOOD RESULTS
[2020-07-24 18:40] LABS: CHLORIDE 111 mmol/L (98-107); CREATININE 0.74 mg/dL (0.55-1.02); SODIUM 145 mmol/L (136-145)
[2020-07-24 18:45] LABS: BUN 35 mg/dl (7-24); POTASSIUM 4.8 mmol/L (3.5-5.1)
--- NOTE | 2020-07-24 19:08 | NUR ---
PT PRONED ORDERED.
--- NOTE | 2020-07-24 19:17 | NUR ---
PT ZEFERINO, DR COLEY NOTIFIED OF BMP, NO ORDERS PENDING
--- NOTE | 2020-07-24 20:00 | NUR ---
PT RESTING IN BED IN PRONED POSITION. ENDOTUBE PATENT, TIES SECURE, VENT SETTINGS VERIFIED AND FUNCTIONING WITHOUT DIFFICULTY. OGT PATENT. RIGHT IJ MLC AND LEFT RADIAL ARTLINE PATENT, DRESSINGS DRY AND INTACT. CHO PATENT FOR CLEAR YELLOW URINE. NO ACUTE DISTRESS NOTED. PT SEDATED WITH DIPRIVAN AND NIMBEX AND EFFECTIVE. ISOLATION PRECAUTIONS MAINTAINED.
[2020-07-24 21:46] LABS: ABG BASE EXCESS 3.8 mmol/L (-2.0-2.0); ARTERIAL BLOOD GAS PH 7.329 (7.35-7.45)
[2020-07-25] VITALS (24 sets, daily range): BP systolic 91–169; BP diastolic 57–85
--- NOTE | 2020-07-25 03:00 | NUR ---
MEDICATED WITH VERSED PER PRN ORDER FOR SEDATION.
[2020-07-25 06:00] LABS: BASO % 0.1 % (0.0-1.0); HEMATOCRIT 33.6 % (37.0-47.0); LYMPH # 0.3 10*3/uL (1.3-4.4); LYMPH % 4.1 % (27.0-41.0); MEAN CELL VOLUME 94.9 fl (81.0-99.0); MEAN CORPUSCULAR HGB 30.2 pg (27.0-31.0); MEAN CORPUSCULAR HGB CONC 31.8 g/dl (33.0-37.0); MEAN PLATELET VOLUME 10.5 fl (9.6-12.3); MONO # 0.5 10*3/uL (0.1-1.0); MONO % 6.9 % (3.0-9.0); NEUT % 87.7 % (47.0-73.0); PLATELET COUNT AUTOMATED 208 10*3/uL (130-400); RED BLOOD COUNT 3.54 10*6/uL (4.10-5.10); RED CELL DISTRI WIDTH 12.3 % (0-14.5); WHITE BLOOD COUNT 6.8 10*3/uL (4.8-10.8)
[2020-07-25 06:12] LABS: ALBUMIN 3.5 gm/dl (3.1-4.5); ALKALINE PHOSPHATASE 84 U/L (45-117); BUN 36 mg/dl (7-24); CHLORIDE 106 mmol/L (98-107); CPK 42 U/L (26-192); CREATININE 0.72 mg/dL (0.55-1.02); LDH 335 U/L (84-246); POTASSIUM 4.2 mmol/L (3.5-5.1); SGOT/AST 27 IU/L (3-35); SGPT/ALT 48 U/L (12-78); SODIUM 145 mmol/L (136-145); TOTAL PROTEIN 6.8 gm/dL (6.4-8.2)
[2020-07-25 07:35] LABS: ABG BASE EXCESS 8.8 mmol/L (-2.0-2.0); ARTERIAL BLOOD GAS PH 7.452 (7.35-7.45)
--- NOTE | 2020-07-25 09:25 | NUR ---
PT GIVEN VERSED FOR TACHYCARDIA AND INCREASED BP
[2020-07-25 14:25] LABS: ABG BASE EXCESS 7.7 mmol/L (-2.0-2.0); ARTERIAL BLOOD GAS PH 7.375 (7.35-7.45)
--- NOTE | 2020-07-25 14:59 | NUR ---
AFTER PRONING PT WAS GIVEN A SEDATION VACATION, SHOOK HEAD YES AND NO APPROPRIATLY, ATTEMPT TO OPEN EYES, CAN RAISE EYBROWS, VENT REMAINS INTACT, PALPABLE sq EMPHYSEMA NOTED TO L NECK, TURNED AND REPOSITIONED
--- NOTE | 2020-07-25 15:28 | NUR ---
PT GETS TACHYCARDIC AND HYPERTENSIVE AFTER TURNING AND REPOSITIONING, VERSED 5MG IV GIVEN PER PRN ORDER
--- NOTE | 2020-07-25 15:45 | NUR ---
VERSED EFFECTIVE FOR AGGITATION
--- NOTE | 2020-07-25 16:47 | NUR ---
TEDS APPLIED TO PATIENT
--- NOTE | 2020-07-25 17:44 | NUR ---
DR CLAIRE NOTIFIED OF PRESSURE SORE
--- NOTE | 2020-07-25 18:56 | NUR ---
PT WITH INCREASED PULSE AND HEARTRATE AFTER TURNING, VERSED 5MG GIVEN FOR INCREASED AGGITATION
--- NOTE | 2020-07-25 20:00 | NUR ---
PT RESTING IN BED WITH EYES CLOSED, ENDOTUBE PATENT, TIES SECURE, VENT SETTINGS VERIFIED AND VENT FUNCTIONING WITHOUT DIFFICULTY. RIGHT IJ MLC AND LEFT RADIAL ART LINE PATENT, DRESSINGS DRY AND INTACT.CHO PATENT FOR DARK TIMI URINE. OGT PATENT, PLACEMENT VERIFIED VIA AIR BOLUS AND TF INFUSING ORDERED AND MARIELLE WELL. DIPRIVAN AND NIMBEX INFUSING FOR SEDATION AND EFFECTIVE. NO ACUTE DISTRESS NOTED AT THIS TIME. ISOLATION PRECAUTIONS MAINTAINED.
--- NOTE | 2020-07-25 23:10 | NUR ---
MEDICATED WITH VERSED PER PRN ORDER FOR SEDATION.
[2020-07-26] VITALS (25 sets, daily range): BP systolic 86–142; BP diastolic 54–82
[2020-07-26 06:02] LABS: ALBUMIN 3.2 gm/dl (3.1-4.5); ALKALINE PHOSPHATASE 82 U/L (45-117); CHLORIDE 107 mmol/L (98-107); CREATININE 0.94 mg/dL (0.55-1.02); LDH 349 U/L (84-246); POTASSIUM 4.8 mmol/L (3.5-5.1); SGOT/AST 35 IU/L (3-35); SGPT/ALT 54 U/L (12-78); SODIUM 144 mmol/L (136-145); TOTAL PROTEIN 6.4 gm/dL (6.4-8.2)
[2020-07-26 06:07] LABS: BASO % 0.2 % (0.0-1.0); HEMATOCRIT 34.7 % (37.0-47.0); LYMPH # 0.3 10*3/uL (1.3-4.4); LYMPH % 2.7 % (27.0-41.0); MEAN CELL VOLUME 97.2 fl (81.0-99.0); MEAN CORPUSCULAR HGB CONC 30.8 g/dl (33.0-37.0); MEAN PLATELET VOLUME 11.1 fl (9.6-12.3); MONO # 0.9 10*3/uL (0.1-1.0); MONO % 8.6 % (3.0-9.0); NEUT # 9.4 10*3/uL (2.3-7.9); NEUT % 86.6 % (47.0-73.0); PLATELET COUNT AUTOMATED 203 10*3/uL (130-400); RED BLOOD COUNT 3.57 10*6/uL (4.10-5.10); RED CELL DISTRI WIDTH 12.4 % (0-14.5); WHITE BLOOD COUNT 10.8 10*3/uL (4.8-10.8)
[2020-07-26 06:10] LABS: BUN 67 mg/dl (7-24); CPK 108 U/L (26-192)
[2020-07-26 08:04] LABS: ABG BASE EXCESS 7.9 mmol/L (-2.0-2.0); ARTERIAL BLOOD GAS PH 7.374 (7.35-7.45)
--- NOTE | 2020-07-26 09:11 | NUR ---
UNABLE TO OBTAIN BREATH MANEUVER MEASUREMENTS. PATIENT IS SEDATED, BUT STILL SLIGHTLY CONSCIOUS TO MESS WITH READING.
--- NOTE | 2020-07-26 11:00 | NUR ---
DR SIFUENTES IN TO SEE PT AND AWARE OF ELEVATED TEMP OF 100.6
--- NOTE | 2020-07-26 11:40 | NUR ---
PT HEART RATE UP TO 120'S. VERSED 5MG IV GIVEN FOR SEDATION.
--- NOTE | 2020-07-26 11:42 | NUR ---
PT MEDICATED WITH TYLENOL 650MG VIA OGT DUE TO TEMP OF 100.9 AND HEART RATE UP TO 120'S.
--- NOTE | 2020-07-26 13:58 | NUR ---
DRESSING APPLIED TO CHIN WOUND PER PHYSICIANS ORDERS.
--- NOTE | 2020-07-26 15:43 | NUR ---
PT MEDICATED WITH TYLENOL 650MG VIA OGT FOR TEMP OF 101.5 WITH HEART RATE OF 130.
--- NOTE | 2020-07-26 17:44 | NUR ---
I PAGED DR SIFUENTES AT THIS TIME TO MAKE HER AWARE OF PT'S TEMP CONTINUING TO RISE AND IS NOW 101.7 AND HEART RATE 128.
--- NOTE | 2020-07-26 20:00 | NUR ---
PT RESTING IN BED WITH EYES CLOSED ENDOTUBE PATENT, TIES SECURE, VENT SETTINGS VERIFIED AND FUNCTIONING WITHOUT DIFFICULTY. RIGHT IN MLC AND LEFT ARTLINE PATENT, DRESSINGS DRY AND INTACT, CHO PATENT FOR DARK TIMI URINE. OGT PATENT, PLACEMENT VERIFIED VIA AIR BOLUS. TF INFUSING AND MARIELLE WELL. NO S/S OF HYPO/HYPERGLYCEMIA NOTED. ISOLATION PRECAUTIONS MAINTAINED.
--- NOTE | 2020-07-26 20:00 | NUR ---
DR SIFUENTES CALLED AND NEW ORDERS RECEIVED. OBTAIN 2 SETS OF BLOOD CULTURES, 1 FROM MLC AND ANOTHER FROM VENOUS SITE. VANCO WITH PHARMACY TO DOSE. OBTAIN SPUTUM CULTURE.
--- NOTE | 2020-07-26 20:40 | NUR ---
MEDICATED WITH TYLENOL PER PRN ORDER FOR T 102.0 AND XANAX PER PRN ORDER FOR AGITATION.
[2020-07-27] VITALS (25 sets, daily range): BP systolic 86–140; BP diastolic 57–75
--- NOTE | 2020-07-27 | NUR ---
XANAX EFFECTIVE FOR AGITATION. TYLENOL INEFFECTIVE FOR TEMP.
--- NOTE | 2020-07-27 01:15 | NUR ---
MEDICATED WITH TYLENOL PER PRN ORDER FOR TEMP 101.8.
--- NOTE | 2020-07-27 04:00 | NUR ---
TYLENOL EFFECTIVE FOR TEMP.
[2020-07-27 05:58] LABS: HEMATOCRIT 29.2 % (37.0-47.0); MEAN CELL VOLUME 95.1 fl (81.0-99.0); MEAN CORPUSCULAR HGB CONC 31.5 g/dl (33.0-37.0); MEAN PLATELET VOLUME 11.9 fl (9.6-12.3); NUCLEATED RED BLOOD CELL 0.1 10*3/uL (0.0-0.0); NUCLEATED RED BLOOD CELL 0.4 % (0.0-0.0); PLATELET COUNT AUTOMATED 162 10*3/uL (130-400); RED BLOOD COUNT 3.07 10*6/uL (4.10-5.10); RED CELL DISTRI WIDTH 12.3 % (0-14.5); WHITE BLOOD COUNT 12.3 10*3/uL (4.8-10.8)
[2020-07-27 06:15] LABS: ALBUMIN 3.3 gm/dl (3.1-4.5); CREATININE 1.09 mg/dL (0.55-1.02); POTASSIUM 4.6 mmol/L (3.5-5.1); TOTAL PROTEIN 6.3 gm/dL (6.4-8.2)
[2020-07-27 07:28] LABS: PLATELET SUFFICIENCY NORMAL (NORMAL); TOTAL CELLS COUNTED 100 #CELLS
--- NOTE | 2020-07-27 08:23 | NUR ---
PHYSICAL THERAPY Pt admitted with pnumonia with COVID per medical notes 07/26 pt is sedated on ventilator,please consult PT as/if medically appropriate thank you Nicole Alas PT
[2020-07-27 08:28] LABS: ABG BASE EXCESS 7.7 mmol/L (-2.0-2.0); ARTERIAL BLOOD GAS PH 7.383 (7.35-7.45)
--- NOTE | 2020-07-27 09:00 | NUR ---
patient continues on vent. discharge plan undecided at this time, case management will follow
--- NOTE | 2020-07-27 09:16 | NUR ---
SPEECH PATHOLOGY Pt admitted with pneumonia and COVID+ per notes. Patient sedated and on ventilator. Please consult SUPERVISOR MOLDING when medically appropriate. Thank you. Get Nguyen MA [facility]-SUPERVISOR MOLDING
--- NOTE | 2020-07-27 10:16 | NUR ---
Nursing screen received and chart was reviewed. Patient was admitted with Pneumona and (+) Coronavirus. Patient was intubated on 07/23 and currently still intubated and sedated. Please send OT orders when patient is medically appropriate for evaluation. thank you Karolina Lubin OTR/Jabari
--- NOTE | 2020-07-27 11:36 | NUR ---
IV FLUIDS DC'D PER DR COLEY.
--- NOTE | 2020-07-27 12:10 | NUR ---
PT MEDICATED WITH TYLENOL FOR ELEVATED TEMP OF 100.8 AND HEART RATE UP TO 120'S.
--- NOTE | 2020-07-27 16:45 | NUR ---
PT MEDICATED WITH TYLENOL 650MG VIA OGT FOR TEMP OF 101.3
--- NOTE | 2020-07-27 17:29 | NUR ---
DR STEWART NOTIFIED THAT PT HAS HAD 3 LIQUID STOOLS TODAY AND IT IS NOW DARK BLACK AND TARRY. ORDER TO SEND STOOL FOR OCCULT BLOOD WITH NEXT BM.
--- NOTE | 2020-07-27 20:48 | NUR ---
TYLENOL GIVEN AT 2000 FOR ELEVATED TEMP OF 101.7 APPEARS TO BE EFFECTIVE HR DOWN TO 120/MIN AND TEMP TO 101.5.
--- NOTE | 2020-07-27 23:09 | NUR ---
ETT WAS PULLED BACK 2.[address] COLEY. TUBE WAS AT 22.5 AT THE LIP. ETT IS NOW 20 CM AT THE LIP. NURSE WAS AT BEDSIDE WITH ME. TUBE IS SECURE AND VENT CHECK WAS DONE.
[2020-07-28] VITALS (39 sets, daily range): BP systolic 73–1102; BP diastolic 47–79
--- NOTE | 2020-07-28 02:00 | NUR ---
TYLENOL FOR TEMP 100.8.
--- NOTE | 2020-07-28 02:10 | NUR ---
STOOL SPECIMEN WAS SENT ORDERED.
[2020-07-28 06:11] LABS: ALBUMIN 2.8 gm/dl (3.1-4.5); CHLORIDE 111 mmol/L (98-107); CREATININE 1.07 mg/dL (0.55-1.02); POTASSIUM 5.3 mmol/L (3.5-5.1); SGOT/AST 47 IU/L (3-35); SGPT/ALT 62 U/L (12-78); SODIUM 147 mmol/L (136-145); TOTAL PROTEIN 5.4 gm/dL (6.4-8.2)
[2020-07-28 06:12] LABS: ALKALINE PHOSPHATASE 66 U/L (45-117); CPK 317 U/L (26-192)
[2020-07-28 06:13] LABS: BUN 96 mg/dl (7-24)
[2020-07-28 06:26] LABS: HEMATOCRIT 25.1 % (37.0-47.0); MEAN CELL VOLUME 97.3 fl (81.0-99.0); MEAN CORPUSCULAR HGB 29.5 pg (27.0-31.0); MEAN CORPUSCULAR HGB CONC 30.3 g/dl (33.0-37.0); MEAN PLATELET VOLUME 12.4 fl (9.6-12.3); NUCLEATED RED BLOOD CELL 0.6 10*3/uL (0.0-0.0); NUCLEATED RED BLOOD CELL 2.2 % (0.0-0.0); PLATELET COUNT AUTOMATED 178 10*3/uL (130-400); RED BLOOD COUNT 2.58 10*6/uL (4.10-5.10); RED CELL DISTRI WIDTH 12.5 % (0-14.5); WHITE BLOOD COUNT 26.1 10*3/uL (4.8-10.8)
[2020-07-28 06:53] LABS: TOTAL CELLS COUNTED 100 #CELLS
[2020-07-28 06:54] LABS: PLATELET SUFFICIENCY NORMAL (NORMAL)
[2020-07-28 07:41] LABS: ABG BASE EXCESS 4.3 mmol/L (-2.0-2.0); ARTERIAL BLOOD GAS PH 7.346 (7.35-7.45)
--- NOTE | 2020-07-28 09:35 | NUR ---
0737. sEDATION TO OFF. Pt. not responsive, no cough or gag at this time. no spontaneous opening of eyes. Oral mucosa rodrigo and oral care was given. On repositioning was noted to be incontinent of large loose dark green/black stool. Addie care was given. Dr. Grewal in in aware of + IFOB. Dr. Spann was notified of consult and evaulated pt. Orders were recieved. 0942. pt. remains off sedation at this time w/ minimal responsiveness.
--- NOTE | 2020-07-28 11:16 | NUR ---
1055 restless, no spontaneous opening of eyes, HR 144. Sedation resumed. dr. Mobley in to evaualate. Hypotensive episode following versed administration . NS bolus up to infuse. Normotension resumed. Febrile and medicated.
[2020-07-28 14:54] LABS: ARTERIAL BLOOD GAS PH 7.403 (7.35-7.45)
--- NOTE | 2020-07-28 16:02 | NUR ---
INCREASED FIO2 TO 40%
--- NOTE | 2020-07-28 16:30 | NUR ---
Pt . did not recieve adequate care durinf 7-3 shift due to inadequate staffing. Charting is not complete as stated above inadequate staffing.
[2020-07-28 16:42] LABS: HEMATOCRIT 22.5 % (37.0-47.0); MEAN CELL VOLUME 95.7 fl (81.0-99.0); MEAN CORPUSCULAR HGB 29.8 pg (27.0-31.0); MEAN CORPUSCULAR HGB CONC 31.1 g/dl (33.0-37.0); MEAN PLATELET VOLUME 12.4 fl (9.6-12.3); NUCLEATED RED BLOOD CELL 1.4 10*3/uL (0.0-0.0); NUCLEATED RED BLOOD CELL 3.9 % (0.0-0.0); PLATELET COUNT AUTOMATED 152 10*3/uL (130-400); RED BLOOD COUNT 2.35 10*6/uL (4.10-5.10); RED CELL DISTRI WIDTH 12.5 % (0-14.5); WHITE BLOOD COUNT 36.6 10*3/uL (4.8-10.8)
--- NOTE | 2020-07-28 17:00 | NUR ---
TURNED AND REPOSITIONED ONTO RIGHT SIDE. 100CC BURGENDY RETURN NOTED FROM OGT. DR. MONTILLA NOTIFIED. GASTRIC OCCULT SENT TO LAB. RIJ MLC INTACT WITH NIMBEX GTT INFUSING AT 0.5 MICS, PROTONIX GTT AT 10MG/HR AND DIPRIVAN GTT INFUSING AT 10 YAMILETH'S. LEFT RADIAL ART LINE INTACT. CHO DRAINING CLEAR YELLOW URINE. TEMP RECTAL 101.3. MEDICATED WITH 2 TYLENOL.
[2020-07-28 17:19] LABS: TOTAL CELLS COUNTED 100 #CELLS
[2020-07-28 17:20] LABS: PLATELET SUFFICIENCY NORMAL (NORMAL)
--- NOTE | 2020-07-28 17:45 | NUR ---
BP 73/47. LEVOPHED GTT HUNG AT 5 YAMILETH'S. MAP SLOWLY INCREASED. LEVOPHED GTT INCREASED TO 10 YAMILETH'S
--- NOTE | 2020-07-28 18:00 | NUR ---
FIRST UNIT PRBC'S HUNG ORDERED
--- NOTE | 2020-07-28 20:50 | NUR ---
1930 MOVING HEAD BACK BACK ANAD FORTH. MOVING FEET. BP IMPROVING WITH LEVOPHED GTT. DIPRIVAN GTT RESUMED. PT RESTING IN BED IN SUPINE POSITION. HOB ELEVATED. SIDE RAILS UP X'S 2. NPO. ORAL CARE DONE. SUCTIONED ORALLY AND VIA ET. SEE INTERVENTION SCREEN. PULSE OX 96% ON 40% FI02. RIJ MLC INTACT. SANDOSTATIN, LEVOPHED, PROTONIX, NIMBEX AND DIPRIVAN GTTS CONT. SEE INTERVENTION SCREEN FOR Q15MIN BP'S. OGT INTACT AND CLAMPED. PLACEMENT CONFIRMED WITH AIR BOLUS/AUSCULTATION. TF ON HOLD. WRIST RESTRAINTS INTACT BILATERALLY. CIRCULATION ADEQUATE. CHO PATENT AND DRAINING CLEAR YELLOW URINE. COLOR REMAINS PALE. 2003 PACKED CELLS INFUSED. TOLERATED WELL. RECTAL TEMP REMAINS 101.7. TOO EARLY FOR TYLENOL. WILL CONT TO MONITOR. ISOLATION MAINTAINED.
--- NOTE | 2020-07-28 21:23 | NUR ---
TYLENOL 2 GIVEN VIA OGT FOR TEMP OF 101.8 RECTAL. WILL MONITOR.
--- NOTE | 2020-07-28 22:31 | NUR ---
2200 ADEQUATELY SEDATED ON DIPRIVAN AT 15MICS. LEVOPHED TITRATED DOWN TO 8MICS FOR IMPROVING BP.
--- NOTE | 2020-07-28 22:33 | NUR ---
RECTAL TEMP REMAINS 101.7.
[2020-07-29] VITALS (96 sets, daily range): BP systolic 82–127; BP diastolic 45–86
[2020-07-29 00:15] LABS: HEMATOCRIT 26.6 % (37.0-47.0); MEAN CORPUSCULAR HGB 29.9 pg (27.0-31.0); MEAN CORPUSCULAR HGB CONC 32.3 g/dl (33.0-37.0); MEAN PLATELET VOLUME 12.4 fl (9.6-12.3); NUCLEATED RED BLOOD CELL 1.7 10*3/uL (0.0-0.0); PLATELET COUNT AUTOMATED 136 10*3/uL (130-400); RED BLOOD COUNT 2.88 10*6/uL (4.10-5.10); RED CELL DISTRI WIDTH 13.2 % (0-14.5)
[2020-07-29 00:17] LABS: MEAN CELL VOLUME 92.4 fl (81.0-99.0)
[2020-07-29 00:19] LABS: WHITE BLOOD COUNT 42.1 10*3/uL (4.8-10.8)
[2020-07-29 00:38] LABS: MICROCYTOSIS SLIGHT; PLATELET SUFFICIENCY LOW (NORMAL); TOTAL CELLS COUNTED 100 #CELLS
--- NOTE | 2020-07-29 01:04 | NUR ---
DR. BLAIR NOTIFIED OF RECENT CBC RESULTS AND THAT PT HAS NOT HAD CT OF ABD DUE TO HER PREVIOUS UNSTABLE CONDITION. NO EVIDENCE OF BLEEDING NOTED VIA OGT OR RECTALLY. CONT TO RECEIVE SANDOSTATIN GTT, IV PROTONIX AND PO CARAFATE.
--- NOTE | 2020-07-29 02:15 | NUR ---
RECTAL TEMP IS 101.3
--- NOTE | 2020-07-29 04:24 | NUR ---
TYLENOL GIVEN VAI OGT FOR RECTAL TEMP OF 101.7. WILL MONITOR.
--- NOTE | 2020-07-29 05:24 | NUR ---
EARLIER TYLENOL NO EFFECTIVE
[2020-07-29 06:14] LABS: ALBUMIN 2.5 gm/dl (3.1-4.5); CREATININE 1.08 mg/dL (0.55-1.02); TOTAL PROTEIN 5.2 gm/dL (6.4-8.2)
[2020-07-29 06:15] LABS: NUCLEATED RED BLOOD CELL 1.9 10*3/uL (0.0-0.0); RED CELL DISTRI WIDTH 13.2 % (0-14.5)
[2020-07-29 06:23] LABS: HEMATOCRIT 25.3 % (37.0-47.0); MEAN CORPUSCULAR HGB 30.1 pg (27.0-31.0); MEAN CORPUSCULAR HGB CONC 32.4 g/dl (33.0-37.0); MEAN PLATELET VOLUME 12.7 fl (9.6-12.3); NUCLEATED RED BLOOD CELL 4.1 % (0.0-0.0); PLATELET COUNT AUTOMATED 129 10*3/uL (130-400); RED BLOOD COUNT 2.72 10*6/uL (4.10-5.10)
[2020-07-29 06:24] LABS: WHITE BLOOD COUNT 45.6 10*3/uL (4.8-10.8)
--- NOTE | 2020-07-29 06:31 | NUR ---
DR. BLAIR NOTIFIED OF CONT ELEVATED WBC AND RECTAL TEMP OF 102.
--- NOTE | 2020-07-29 06:33 | NUR ---
LEVPOHED GTT BACK U P TO 10MICS. SEE INTERVENTION SCREEN FOR Q15MIN BP'S. ALL OTHER GTTS CONT. OGT REMAINS INTACT AND CLAMPED. ET SECURE TO VENT. PULSE OX 95%. CONDITION GUARDED.
[2020-07-29 06:50] LABS: PLATELET SUFFICIENCY LOW (NORMAL); POLYCHROMASIA SLIGHT; TOTAL CELLS COUNTED 100 #CELLS
--- NOTE | 2020-07-29 06:54 | NUR ---
ICE BAGS APPLIED TO BILATERAL AXILLAS AND GROIN. LEVOPHED TITRATED UP TO 12MICS FOR MAP OF 64. WILL CONT MONITOR.
[2020-07-29 08:25] LABS: ABG BASE EXCESS 2.6 mmol/L (-2.0-2.0); ARTERIAL BLOOD GAS PH 7.386 (7.35-7.45)
[2020-07-29 11:15] LABS: LIPASE 232 U/L (73-393)
--- NOTE | 2020-07-29 11:30 | NUR ---
Infomed consent obtained from patient and family by Dr. COLEY for elective intubation. Patient intubated with 8 Lebanese endotracheal tube orally X 1 attempts. Patient sedated with ETOMADATE ADN SUCCHYCHOLINE Respiratory therapy at bedside. Crash cart with emergency drugs available. Endotracheal tube inflated with 8cc's. Lungs auscultated for equality of breath sounds. Tube secured with Tube tamer at 22cm's. at level of LIP. Patient tolerated procedure WELL. Portable chest X-ray obtained and reviewed for tube placement. Patient connected to ventilator CMV mode, 400 tidal volume, 100 FIO2, 10 PEEP, and pressure support. KALEB RIOS
--- NOTE | 2020-07-29 12:05 | NUR ---
patient remains on vent, discharge plans undecided at this time
--- NOTE | 2020-07-29 16:09 | NUR ---
Nutritional Support Services Note: Dx of pneumonia due to Covid 19, hx of anemia,anxiety, arthritis and SVT. Currently patient is on a vent. Pulmocare via OGT at 30cc/hour. Ht.4'11 Wt.159# IBW 80-95#. She requires approx. 1700cal daily to maintain current wt. TF at 30cc/hr is providing pt with 720cc/1080cal daily. Pt requires TF to be at least to 50cc/hr to provide adequate calories and protein. Will continue to follow. Rach Payan Rdn Ld
--- NOTE | 2020-07-29 19:50 | NUR ---
1950 TYLENOL 2 PO GIVEN, CRUSHED, VIA OGT. WILL MONITOR.
--- NOTE | 2020-07-29 20:20 | NUR ---
1950 REPOSITIONED ON BACK. HOB ELEVATED. SIDE RAILS UP X'S 2. ISOLATION CONT. NPO. ORAL CARE DONE. MUCOUS MEMBRANES DRY. LIJ MLC INTACT. ET SECURE TO VENT. SUCTIONED. SEE INTERVENTION SCREEN. PULSE OX 97% ON 40% FI02 VIA VENT. LEVOPHED GTT CONT AT 12MICS. SEE INTERVENTION SCREEN FOR Q15MIN BP'S. DIPRIVAN CONT AT 10MICS. SANDOSTATIN, PROTONIX AND NIMBEX GTTS CONT. OGT INTACT AND CLAMPED. PLACEMENT CONFIRMED WITH AIR BOLUS/AUSCULTATION. WRIST RESTRTAINTS INTACT BILATERALLY, CIRCULATION ADEQUATE. NO DISTRESS NOTED. GRIMACES WHEN SUCTIONED. MOVING FEET OCCASSIONALY. CHO PATENT AND DRAINING CLEAR YELLOW URINE.
--- NOTE | 2020-07-29 20:50 | NUR ---
EARLIER TYLENOL NO EFFECTIVE. TEMP REMAINS ELEVATED
[2020-07-30] VITALS (52 sets, daily range): BP systolic 68–139; BP diastolic 38–591
--- NOTE | 2020-07-30 02:30 | NUR ---
COMPLETE BED BATH GIVEN AND LINENS CHANGED. HYPOTENSIVE AFTER BATH. LEVOPHED INCREASED TO 18MICS. WILL CONT TO MONITOR
[2020-07-30 06:06] LABS: ALBUMIN 1.9 gm/dl (3.1-4.5); CREATININE 1.15 mg/dL (0.55-1.02); TOTAL PROTEIN 4.4 gm/dL (6.4-8.2)
[2020-07-30 06:11] LABS: MEAN CORPUSCULAR HGB 30.1 pg (27.0-31.0); MEAN CORPUSCULAR HGB CONC 31.1 g/dl (33.0-37.0); MEAN PLATELET VOLUME 12.9 fl (9.6-12.3); NUCLEATED RED BLOOD CELL 4.7 10*3/uL (0.0-0.0); NUCLEATED RED BLOOD CELL 9.6 % (0.0-0.0); PLATELET COUNT AUTOMATED 95 10*3/uL (130-400); RED BLOOD COUNT 1.66 10*6/uL (4.10-5.10); RED CELL DISTRI WIDTH 13.3 % (0-14.5)
[2020-07-30 06:14] LABS: WHITE BLOOD COUNT 48.9 10*3/uL (4.8-10.8)
[2020-07-30 06:15] LABS: HEMATOCRIT 16.1 % (37.0-47.0)
--- NOTE | 2020-07-30 06:17 | NUR ---
DR. BLAIR NOTIFIED OF ELEVATED WBC RESULT, LOW H AND H AND CALCIUM. ORDERS RECEIVED. ALSO NOTIFIED OF HYPOTENSION AND LEVOPHED DOSE, PT HR REMAINS IN THE 120'S. RECTAL TEMP IS ELEVATED AT 102. LIJ INTACT. LR ART INTACT. MARQUIS PATENT. NIMBEX, DIPROVAN, SANDOSTAIN AND PROTONIX GTTS CONT. CONDITIN SERIOUS.
[2020-07-30 06:45] LABS: PLATELET SUFFICIENCY LOW (NORMAL); TOTAL CELLS COUNTED 100 #CELLS
[2020-07-30 06:46] LABS: POLYCHROMASIA SLIGHT
--- NOTE | 2020-07-30 07:05 | NUR ---
PRE BLOOD TRANSUSION VITALS DONE.
[2020-07-30 08:01] LABS: ABG BASE EXCESS 1.1 mmol/L (-2.0-2.0); ARTERIAL BLOOD GAS PH 7.306 (7.35-7.45)
--- NOTE | 2020-07-30 11:23 | NUR ---
0740 rbc'S UP TO INFUSE. No spontaneous opening of eyes, minimal gag reflex. Oral mucosa dry, oral care given. OGT occluded , removed and replaced W/ #18. CXR verified placement . Abdomen soft. Incontinent, Large loose black stool. Addie care given 1005 RBC transfusion complete. repositioned to left. Titrating levophed down. 1030 Dr. Delgadillo in to evaulate. Dressing changed to A-line. Site is ecchymotic.
[2020-07-30 12:32] LABS: MEAN CELL VOLUME 94.6 fl (81.0-99.0); MEAN CORPUSCULAR HGB 30.8 pg (27.0-31.0); MEAN CORPUSCULAR HGB CONC 32.5 g/dl (33.0-37.0); NUCLEATED RED BLOOD CELL 4.4 10*3/uL (0.0-0.0); NUCLEATED RED BLOOD CELL 9.4 % (0.0-0.0); PLATELET COUNT AUTOMATED 78 10*3/uL (130-400); RED BLOOD COUNT 2.21 10*6/uL (4.10-5.10); RED CELL DISTRI WIDTH 13.6 % (0-14.5)
[2020-07-30 12:34] LABS: HEMATOCRIT 20.9 % (37.0-47.0); WHITE BLOOD COUNT 46.7 10*3/uL (4.8-10.8)
[2020-07-30 12:46] LABS: BURR CELLS FEW; PLATELET SUFFICIENCY LOW (NORMAL); TOTAL CELLS COUNTED 100 #CELLS
[2020-07-30 13:42] LABS: ABG BASE EXCESS 0.3 mmol/L (-2.0-2.0); ARTERIAL BLOOD GAS PH 7.316 (7.35-7.45)
--- NOTE | 2020-07-30 15:05 | NUR ---
RBC'S UP TO INFUSE.
--- NOTE | 2020-07-30 18:49 | NUR ---
[facility]. [facility]. No new orders.
[2020-07-30 22:52] LABS: HEMATOCRIT 23.6 % (37.0-47.0); MEAN CORPUSCULAR HGB 30.3 pg (27.0-31.0); MEAN CORPUSCULAR HGB CONC 33.5 g/dl (33.0-37.0); MEAN PLATELET VOLUME 12.9 fl (9.6-12.3); NUCLEATED RED BLOOD CELL 11.9 % (0.0-0.0); NUCLEATED RED BLOOD CELL 4.9 10*3/uL (0.0-0.0); PLATELET COUNT AUTOMATED 72 10*3/uL (130-400); RED BLOOD COUNT 2.61 10*6/uL (4.10-5.10); RED CELL DISTRI WIDTH 15.1 % (0-14.5)
[2020-07-30 22:56] LABS: MEAN CELL VOLUME 90.4 fl (81.0-99.0)
[2020-07-30 22:58] LABS: WHITE BLOOD COUNT 40.9 10*3/uL (4.8-10.8)
[2020-07-30 23:14] LABS: MICROCYTOSIS SLIGHT; PLATELET SUFFICIENCY LOW (NORMAL); TOTAL CELLS COUNTED 100 #CELLS
[2020-07-31] VITALS (77 sets, daily range): BP systolic 102–136; BP diastolic 48–61
--- NOTE | 2020-07-31 00:10 | NUR ---
O2 INCREASED OT 45% DUE TO DESATURATOIN TO 85%. PT SUCTIONED. O2 REBOUNDED TO 96%. ABG OBTAINED. WILL CONTINUE TO REASSESS.
[2020-07-31 00:35] LABS: ABG BASE EXCESS 2.5 mmol/L (-2.0-2.0); ARTERIAL BLOOD GAS PH 7.373 (7.35-7.45)
--- NOTE | 2020-07-31 00:57 | NUR ---
I HAVE DECREASED PATIENTS LEVOPHED X2 DOWN TO 3 MCQS PATIENT BP HAS BEEN MAINTAINED THROUGH OUT THE NIGHT SEE VITALS.
[2020-07-31 06:16] LABS: HEMATOCRIT 23.2 % (37.0-47.0); MEAN CELL VOLUME 90.3 fl (81.0-99.0); MEAN CORPUSCULAR HGB 29.6 pg (27.0-31.0); MEAN CORPUSCULAR HGB CONC 32.8 g/dl (33.0-37.0); NUCLEATED RED BLOOD CELL 12.9 % (0.0-0.0); NUCLEATED RED BLOOD CELL 4.9 10*3/uL (0.0-0.0); PLATELET COUNT AUTOMATED 76 10*3/uL (130-400); RED BLOOD COUNT 2.57 10*6/uL (4.10-5.10); RED CELL DISTRI WIDTH 15.3 % (0-14.5)
[2020-07-31 06:18] LABS: CHLORIDE 112 mmol/L (98-107); CHOLESTEROL 126 mg/dL (<200); POTASSIUM 4.8 mmol/L (3.5-5.1); SGOT/AST 114 IU/L (3-35); SGPT/ALT 109 U/L (12-78); SODIUM 144 mmol/L (136-145); TOTAL PROTEIN 4.7 gm/dL (6.4-8.2); TRIGLYCERIDES 363 mg/dl (<150); VLDL CHOLESTEROL 73 mg/dL (6-40)
[2020-07-31 06:20] LABS: WHITE BLOOD COUNT 37.8 10*3/uL (4.8-10.8)
[2020-07-31 06:24] LABS: ALKALINE PHOSPHATASE 66 U/L (45-117); BUN 42 mg/dl (7-24); CPK 173 U/L (26-192); HDL CHOLESTEROL 20 mg/dl (40-60); LDL CHOLESTEROL 33 mg/dL (9-159)
[2020-07-31 06:47] LABS: BURR CELLS FEW; OVALOCYTES FEW; PLATELET SUFFICIENCY LOW (NORMAL); POLYCHROMASIA SLIGHT; TOTAL CELLS COUNTED 100 #CELLS
[2020-07-31 08:10] LABS: ABG BASE EXCESS 1.8 mmol/L (-2.0-2.0); ARTERIAL BLOOD GAS PH 7.357 (7.35-7.45)
[2020-07-31 13:47] LABS: ABG BASE EXCESS 1.9 mmol/L (-2.0-2.0); ARTERIAL BLOOD GAS PH 7.374 (7.35-7.45)
[2020-07-31 14:16] LABS: RED BLOOD COUNT 2.29 10*6/uL (4.10-5.10); WHITE BLOOD COUNT 31.5 10*3/uL (4.8-10.8)
[2020-07-31 14:17] LABS: HEMATOCRIT 21.2 % (37.0-47.0); MEAN CELL VOLUME 92.6 fl (81.0-99.0); MEAN CORPUSCULAR HGB 30.1 pg (27.0-31.0); MEAN CORPUSCULAR HGB CONC 32.5 g/dl (33.0-37.0); MEAN PLATELET VOLUME 12.2 fl (9.6-12.3); NUCLEATED RED BLOOD CELL 12.6 % (0.0-0.0); PLATELET COUNT AUTOMATED 70 10*3/uL (130-400); RED CELL DISTRI WIDTH 15.5 % (0-14.5)
[2020-07-31 14:19] LABS: OVALOCYTES FEW; PLATELET SUFFICIENCY LOW (NORMAL); TOTAL CELLS COUNTED 100 #CELLS
[2020-07-31 14:20] LABS: POLYCHROMASIA SLIGHT
--- NOTE | 2020-07-31 17:47 | NUR ---
INCREASED FIO2 TO 55% PT SPO2 WAS 86-88%. ABG IN 2 HRS
[2020-07-31 21:45] LABS: MEAN CELL VOLUME 90.3 fl (81.0-99.0); MEAN CORPUSCULAR HGB 28.9 pg (27.0-31.0); MEAN PLATELET VOLUME 12.2 fl (9.6-12.3); NUCLEATED RED BLOOD CELL 12.3 % (0.0-0.0); NUCLEATED RED BLOOD CELL 3.3 10*3/uL (0.0-0.0); PLATELET COUNT AUTOMATED 71 10*3/uL (130-400); RED BLOOD COUNT 2.77 10*6/uL (4.10-5.10); RED CELL DISTRI WIDTH 15.4 % (0-14.5); WHITE BLOOD COUNT 26.5 10*3/uL (4.8-10.8)
[2020-07-31 22:12] LABS: PLATELET SUFFICIENCY LOW (NORMAL); POLYCHROMASIA SLIGHT; TOTAL CELLS COUNTED 100 #CELLS
[2020-07-31 22:14] LABS: MICROCYTOSIS SLIGHT; STOMATOCYTE FEW
--- NOTE | 2020-07-31 22:32 | NUR ---
LEVOPHED IS OFF AT THIS TIME. PATIENT CURRENT BP 128/57 (78).
[2020-08-01] VITALS (12 sets, daily range): BP systolic 125–139; BP diastolic 50–60
[2020-08-01 06:07] LABS: HEMATOCRIT 24.2 % (37.0-47.0); MEAN CELL VOLUME 91.7 fl (81.0-99.0); MEAN CORPUSCULAR HGB 29.5 pg (27.0-31.0); MEAN CORPUSCULAR HGB CONC 32.2 g/dl (33.0-37.0); MEAN PLATELET VOLUME 12.5 fl (9.6-12.3); NUCLEATED RED BLOOD CELL 2.8 10*3/uL (0.0-0.0); PLATELET COUNT AUTOMATED 72 10*3/uL (130-400); RED BLOOD COUNT 2.64 10*6/uL (4.10-5.10); RED CELL DISTRI WIDTH 15.8 % (0-14.5)
[2020-08-01 06:29] LABS: ALBUMIN 1.9 gm/dl (3.1-4.5); CHLORIDE 114 mmol/L (98-107); CREATININE 0.58 mg/dL (0.55-1.02); POTASSIUM 4.2 mmol/L (3.5-5.1); SGOT/AST 109 IU/L (3-35); SGPT/ALT 122 U/L (12-78); SODIUM 146 mmol/L (136-145)
[2020-08-01 06:33] LABS: ALKALINE PHOSPHATASE 101 U/L (45-117); TOTAL PROTEIN 4.8 gm/dL (6.4-8.2)
[2020-08-01 06:51] LABS: BUN 30 mg/dl (7-24); CPK 430 U/L (26-192)
[2020-08-01 07:17] LABS: PLATELET SUFFICIENCY LOW (NORMAL); TOTAL CELLS COUNTED 100 #CELLS
--- NOTE | 2020-08-01 09:02 | NUR ---
Eyes opened spontaneously . 0745 . Nimbex and propofol to OFF. Moving mouth and RLE . Oral mucosa moist , oral care given. OGT and ETT secure. Abdomen soft . Murphy cath patent, Fecal containment system secure draining dark black liquid stool . In lieu of pt. not moving arms or portraying any purposeful movement. Restraint was removed. Repositioned to rt.
[2020-08-01 09:36] LABS: ABG BASE EXCESS 1.5 mmol/L (-2.0-2.0); ARTERIAL BLOOD GAS PH 7.384 (7.35-7.45)
--- NOTE | 2020-08-01 12:32 | NUR ---
BC called as + Dr. Delgadillo here and aware. Sedation to resume . Dtr called in and update was given. Dr. Mckeon in earlier to evaulate.
--- NOTE | 2020-08-01 20:47 | NUR ---
1930 RESTING IN BED WITH HOB ELEVATED. SIDE RAILS UP X'S 2. WRIST RESTRAINTS REMAIN OFF. ET SECURE TO VENT. SUCTIONED ORALLY AND VIA ET. OGT INTACT. PLACEMENT CONFIRMED WITH AIR BOLUS/AUSCULTATION. TF MAINTAINED AT 10CC/HR. PULSE OX 95% ON 45% FIO2 VIA VENT. PIC INTACT MILDRED. LIJ INTACT. NIMBEX,DIPRIVAN, PROTONIX AND SANDOSTATIN GTTS CONT CHO PATENT AND DRAINING CLEAR YELLOW URINE. FECAL MANAGEMENT SYSTEM INTACT. ISOLATION CONT. ART LINE INTACT LR SITE. ZEROED AND CALIBRATED WITH GOOD WAVEFORM AND DYNAMIC RESPONSE.
[2020-08-02] VITALS (12 sets, daily range): BP systolic 101–148; BP diastolic 42–61
--- NOTE | 2020-08-02 02:13 | NUR ---
REPOSITIONED Q2H. OPENS EYES TO NAME. NO DISTRESS NOTED.
--- NOTE | 2020-08-02 04:32 | NUR ---
0330 VENT ALARMING. PT MOVING IN THE BED. DIPRIVAN INCREASED TO 20MICS FOR SEDATION
--- NOTE | 2020-08-02 05:10 | NUR ---
TYLENOL 2 GIVEN VIA OGT FOR TEMP OF 100.6. WILL MONITOR.
[2020-08-02 06:04] LABS: HEMATOCRIT 22.5 % (37.0-47.0); MEAN CELL VOLUME 92.6 fl (81.0-99.0); MEAN CORPUSCULAR HGB 29.2 pg (27.0-31.0); MEAN CORPUSCULAR HGB CONC 31.6 g/dl (33.0-37.0); MEAN PLATELET VOLUME 12.2 fl (9.6-12.3); NUCLEATED RED BLOOD CELL 0.9 10*3/uL (0.0-0.0); NUCLEATED RED BLOOD CELL 5.9 % (0.0-0.0); PLATELET COUNT AUTOMATED 85 10*3/uL (130-400); RED BLOOD COUNT 2.43 10*6/uL (4.10-5.10); RED CELL DISTRI WIDTH 15.4 % (0-14.5); WHITE BLOOD COUNT 15.1 10*3/uL (4.8-10.8)
[2020-08-02 06:08] LABS: ALBUMIN 1.6 gm/dl (3.1-4.5); BUN 24 mg/dl (7-24); CHLORIDE 119 mmol/L (98-107); CREATININE 0.54 mg/dL (0.55-1.02); POTASSIUM 3.5 mmol/L (3.5-5.1); SGOT/AST 83 IU/L (3-35); SGPT/ALT 103 U/L (12-78); SODIUM 150 mmol/L (136-145); TOTAL PROTEIN 4.8 gm/dL (6.4-8.2)
[2020-08-02 06:10] LABS: ALKALINE PHOSPHATASE 101 U/L (45-117); PREALBUMIN 11 mg/dl (20-40)
--- NOTE | 2020-08-02 06:10 | NUR ---
0610 RECTAL TEMP IS NOW 100.2. EARLIER TYLENOL SL EFFECTIVE.
--- NOTE | 2020-08-02 06:14 | NUR ---
REPOSITIONED Q2H. FREQUENT ORAL CARE DONE. ET SECURE TO VENT. PULSE OX 95%. ALL LINES SECURE. CONDITION GUARDED.
[2020-08-02 07:25] LABS: PLATELET SUFFICIENCY LOW (NORMAL); POLYCHROMASIA SLIGHT; TOTAL CELLS COUNTED 100 #CELLS
[2020-08-02 07:54] LABS: ABG BASE EXCESS 1.6 mmol/L (-2.0-2.0); ARTERIAL BLOOD GAS PH 7.407 (7.35-7.45)
--- NOTE | 2020-08-02 08:36 | NUR ---
0745 Flaccid, Unresponsive . Passive ROM complete at bedside. OGT secure placement verification w/ air bolus. Oral mucosa moist. Oral care given. abdomen soft FCS intact draining dark black stool. 0800 Sedation to off, Eyes opened spontaneously w/i 10 min. Repositioned . 0842 episodes of bradycardia w/ HR as low as 45 bpm.
--- NOTE | 2020-08-02 10:54 | NUR ---
Repositioned q2h. Dr. Mckeon in to evaulate. Awakens easily and obeys verbal command, sedation remains off.
--- NOTE | 2020-08-02 14:29 | NUR ---
Dr. Del[facility] in to [facility]. Orders were recieved. NGT #14 was placed to left nare w/o difficulty. CXR complete awaiting result.
[2020-08-02 16:28] LABS: ABG BASE EXCESS 1.5 mmol/L (-2.0-2.0); ARTERIAL BLOOD GAS PH 7.439 (7.35-7.45)
--- NOTE | 2020-08-02 20:10 | NUR ---
1930 RESTING IN BED ON RI SIDE. HOB ELEVATED. SIDE RAILS UP X'S 2. SEDATION REMAINS OFF. ET SECURE TO VENT. PULSE OX 93% ON CPAP. MONITOR REMAINS NSR IN THE 80'S. OPENS EYES TO CARE. SUCTIONED VIA ET. DIFFICULT TO ORAL SUCTION. PT CLAMPS MOUTH SHUT. ORAL CARE DONE. PICC LINE INTACT MILDRED. LIJ MLC INTACT. ART LINE INTACT LW. ZEROED AND CALIBRATED WITH GOOD WAVEFORM AND DYNAMIC RESPONSE, WRIST RESTRTAINTS REMAIN OFF. CHO PATENT AND DRAINING CLEAR YELLOW URINE. NO DISTRESS NOTED. TF INCREASED TO 20CC/HR PER ORDER DR. COLEY. NGT INTACT. PLACEMENT CONFIRMED WITH AIR BOLUS/ AUSCULTATION.
--- NOTE | 2020-08-02 21:02 | NUR ---
2101 TYLENOL GIVEN VIA NGT FOR RECTAL TEMP OF 100.6. WILL MONITOR.
--- NOTE | 2020-08-02 22:02 | NUR ---
2202 RECTAL TEMP IS 100.4. COMPLETE BED BATH GIVEN AND LINENS CHANGED. REPOSITIONED ON BACK.
[2020-08-03] VITALS (19 sets, daily range): BP systolic 101–153; BP diastolic 51–87
--- NOTE | 2020-08-03 04:10 | NUR ---
0000 REMAINS ON CPAP VIA VENT. PULSE OX 93%. 0200 -0400 RESTING IN BED WITH EYES CLOSED.APPEARS TO BE SLEEPING. ISOLATION MAINTAINED.
--- NOTE | 2020-08-03 06:09 | NUR ---
ET SECURE TO VENT. PULSE OX 92%. NO DISTRESS NOTED. REMAINS UNRESTRAINED. ART LINE INTACT LR SITE. LIJ MLC INTACT. CHO PATENT. CONDITION GUARDED.
[2020-08-03 06:10] LABS: HEMATOCRIT 23.1 % (37.0-47.0); MEAN CELL VOLUME 93.5 fl (81.0-99.0); MEAN CORPUSCULAR HGB 29.1 pg (27.0-31.0); MEAN CORPUSCULAR HGB CONC 31.2 g/dl (33.0-37.0); MEAN PLATELET VOLUME 11.2 fl (9.6-12.3); NUCLEATED RED BLOOD CELL 0.3 10*3/uL (0.0-0.0); NUCLEATED RED BLOOD CELL 2.4 % (0.0-0.0); PLATELET COUNT AUTOMATED 105 10*3/uL (130-400); RED BLOOD COUNT 2.47 10*6/uL (4.10-5.10); RED CELL DISTRI WIDTH 16.9 % (0-14.5); WHITE BLOOD COUNT 11.7 10*3/uL (4.8-10.8)
[2020-08-03 06:13] LABS: ALBUMIN 1.6 gm/dl (3.1-4.5); ALKALINE PHOSPHATASE 109 U/L (45-117); BUN 20 mg/dl (7-24); CHLORIDE 117 mmol/L (98-107); CREATININE 0.53 mg/dL (0.55-1.02); POTASSIUM 3.2 mmol/L (3.5-5.1); SGOT/AST 60 IU/L (3-35); SGPT/ALT 88 U/L (12-78); SODIUM 149 mmol/L (136-145); TOTAL PROTEIN 4.8 gm/dL (6.4-8.2)
[2020-08-03 06:53] LABS: TOTAL CELLS COUNTED 100 #CELLS
[2020-08-03 06:54] LABS: PLATELET SUFFICIENCY LOW (NORMAL); POLYCHROMASIA MODERATE
[2020-08-03 07:56] LABS: ABG BASE EXCESS 1.9 mmol/L (-2.0-2.0); ARTERIAL BLOOD GAS PH 7.45 (7.35-7.45)
--- NOTE | 2020-08-03 11:25 | NUR ---
FIO2 INCREASED TO 45% BY DR COLEY.
--- NOTE | 2020-08-03 11:50 | NUR ---
Patient initial referral faxed to [facility] who is accepting covid positive patients. This patient is still on a vent and not ready for snf, but referral was faxed for review.
--- NOTE | 2020-08-03 15:30 | NUR ---
PICC LINE TO RIGHT ANTECUBITAL REMOVED PER DR SIFUENTES ORDER. TIP SENT TO LAB FOR CULTURE.
--- NOTE | 2020-08-03 16:49 | NUR ---
CUFF LEAK DONE ON AC. NO CUFF LEAK BUT AUDIBLE AIR PASSING
--- NOTE | 2020-08-03 19:37 | NUR ---
24 HR chart check completed.
--- NOTE | 2020-08-03 21:30 | NUR ---
Pt extubated to a BiPap with settings of 14/10 and 60%. NO comps. No stridor heard. Pt was very thankful. HR 102 Spo2 96% RR 24
--- NOTE | 2020-08-03 23:40 | NUR ---
PT WAS EXTUBATED AT 2100 AND PLACED ON BIPAP. PT TOLERATED WELL. SPO2 OF 97-98%. DAUGHTER UPDATED ON STATUS AT 2100.
[2020-08-04] VITALS (8 sets, daily range): BP systolic 109–143; BP diastolic 40–73
[2020-08-04 00:09] LABS: ABG BASE EXCESS 2.2 mmol/L (-2.0-2.0); ARTERIAL BLOOD GAS PH 7.45 (7.35-7.45)
--- NOTE | 2020-08-04 00:27 | NUR ---
DECREASED O2 TO 50%. RN NOTIFIED.
--- NOTE | 2020-08-04 01:30 | NUR ---
PT TOLERATING BIPAP WELL, SPO2 98% FIO2 TITRATED DOWN FROM 60 TO 50%. PT AWAKE AND ALERT, NODDING APPROPRIATELY. TOELRATING TUBE FEED WELL. PT CHO AND RECTAL TUBE INTACT. PROTONIX AND SANDOSTATIN INFUSING TO L IJ. WILL CONTINUE TO MONITOR. ART LINE ZERO AND GOOD WAVE FORM
[2020-08-04 06:07] LABS: HEMATOCRIT 25.9 % (37.0-47.0); MEAN CELL VOLUME 92.2 fl (81.0-99.0); MEAN CORPUSCULAR HGB 28.5 pg (27.0-31.0); MEAN CORPUSCULAR HGB CONC 30.9 g/dl (33.0-37.0); MEAN PLATELET VOLUME 11.4 fl (9.6-12.3); NUCLEATED RED BLOOD CELL 0.1 10*3/uL (0.0-0.0); NUCLEATED RED BLOOD CELL 0.9 % (0.0-0.0); PLATELET COUNT AUTOMATED 120 10*3/uL (130-400); RED BLOOD COUNT 2.81 10*6/uL (4.10-5.10); RED CELL DISTRI WIDTH 15.7 % (0-14.5); WHITE BLOOD COUNT 11.8 10*3/uL (4.8-10.8)
[2020-08-04 06:12] LABS: ALBUMIN 2.1 gm/dl (3.1-4.5); ALKALINE PHOSPHATASE 119 U/L (45-117); BUN 25 mg/dl (7-24); CHLORIDE 110 mmol/L (98-107); CREATININE 0.75 mg/dL (0.55-1.02); POTASSIUM 3.2 mmol/L (3.5-5.1); SGOT/AST 33 IU/L (3-35); SGPT/ALT 75 U/L (12-78); SODIUM 147 mmol/L (136-145)
[2020-08-04 06:13] LABS: TOTAL PROTEIN 5.5 gm/dL (6.4-8.2)
[2020-08-04 07:09] LABS: BASOPHILS 1 % (0-1); TOTAL CELLS COUNTED 100 #CELLS
[2020-08-04 07:10] LABS: OVALOCYTES FEW; PLATELET SUFFICIENCY LOW (NORMAL); POLYCHROMASIA SLIGHT
[2020-08-04 08:00] LABS: ABG BASE EXCESS 4.8 mmol/L (-2.0-2.0); ARTERIAL BLOOD GAS PH 7.471 (7.35-7.45)
--- NOTE | 2020-08-04 08:00 | NUR ---
PT AWAKE AND ALERT TO PERSON ONLY. PT IS PLEASANT AND COOPERATIVE. PT IS VERY WEAK. PT IS ABLE TO MOVE ALL EXTREMETIES BUT NOT WELL. PT/OT WILL BE ORDERED. VSS. PT REMAINS ON BIPAP 60% FIOS. POX MID 90'S. LUNG MINOR DIM. PT DENIES A COUGH. NGT PLACEMENT VERIFIED WITH AN AIR BOLUS. NO RESIDUAL NOTED WITH TUBE FEEDINGS. TUBE FEEDINGS INCREASED TO 40CC/HR. ABD. SOFT WITH ACTIVE BOWEL SOUNDS. CHO PATENT FOR TIMI COLORED URINE. FECAL CONTAINMENT TUBE AND BAG INTACT FOR DARK GREEN LIQUID BM. GENERALIZED EDEMA NOTED. BILATERAL TEDS/SCDS. PT TURNED AND REPOSITIONED FOR COMFORT AND PRESSURE ULCER PREVENTION.
--- NOTE | 2020-08-04 12:00 | NUR ---
DR COLEY IN TO SEE PT. UPDATED HIM ON PT'S CONDITION AND PLAN OF CARE. NEW ORDERS RECEIVED. ISOLATION AND ART LINE ARE TO BE D/C'D.
--- NOTE | 2020-08-04 12:07 | NUR ---
patient is extubated and on bipap. covid positive. she has been referred to [facility]. case management will follow
--- NOTE | 2020-08-04 13:30 | NUR ---
DR JESSICA IN TO SEE PT.
--- NOTE | 2020-08-04 15:11 | NUR ---
CLEARED LOVENOX ORDER WITH DR CLARK.
--- NOTE | 2020-08-04 19:00 | NUR ---
Pt resting on BiPap 14/10 FiO2 60% - alarms on and audible SpO2 96%
[2020-08-04 20:09] LABS: RESULT 1 Candida albicans (.)
[2020-08-05] VITALS: BP 113/61
--- NOTE | 2020-08-05 00:31 | NUR ---
BLADDER TRAINING Q2 HOURS SINCE 1999.JUST UMCLAMPED CHO AT THIS TIME.PATIENT FAMILY CALLED TO CHECK ON PATIENT AT THIS TIME ALSO.
--- NOTE | 2020-08-05 00:33 | NUR ---
Pt still resting on BiPap.
--- NOTE | 2020-08-05 02:00 | NUR ---
CLMAPED PATIENT CHO AT THIS TIME FOR BLADDER TRAINING.
[2020-08-05 04:00] VITALS: BP 117/59
--- NOTE | 2020-08-05 04:00 | NUR ---
UNCLAMPED PATIENTS CHO AT THIS TIME FOR BLADDER TRAINING
[2020-08-05 06:25] LABS: ALBUMIN 1.8 gm/dl (3.1-4.5); ALKALINE PHOSPHATASE 118 U/L (45-117); CHLORIDE 116 mmol/L (98-107); CREATININE 0.59 mg/dL (0.55-1.02); POTASSIUM 3.7 mmol/L (3.5-5.1); SGOT/AST 25 IU/L (3-35); SGPT/ALT 54 U/L (12-78); SODIUM 151 mmol/L (136-145)
[2020-08-05 06:35] LABS: BUN 38 mg/dl (7-24)
[2020-08-05 06:44] LABS: BASO % 0.3 % (0.0-1.0); EOS # 0.1 10*3/uL (0.0-0.4); EOS % 1.1 % (1.0-4.0); HEMATOCRIT 29.1 % (37.0-47.0); LYMPH # 0.5 10*3/uL (1.3-4.4); LYMPH % 4.3 % (27.0-41.0); MEAN CELL VOLUME 94.8 fl (81.0-99.0); MEAN CORPUSCULAR HGB CONC 30.6 g/dl (33.0-37.0); MONO # 0.5 10*3/uL (0.1-1.0); MONO % 4.1 % (3.0-9.0); NEUT # 10.3 10*3/uL (2.3-7.9); NEUT % 88.7 % (47.0-73.0); NUCLEATED RED BLOOD CELL 0.1 10*3/uL (0.0-0.0); NUCLEATED RED BLOOD CELL 0.7 % (0.0-0.0); PLATELET COUNT AUTOMATED 134 10*3/uL (130-400); RED BLOOD COUNT 3.07 10*6/uL (4.10-5.10); RED CELL DISTRI WIDTH 15.9 % (0-14.5); WHITE BLOOD COUNT 11.6 10*3/uL (4.8-10.8)
[2020-08-05 08:00] VITALS: BP 113/61
--- NOTE | 2020-08-05 10:36 | NUR ---
PER Dr. moreno MILES will be 08/06/2020 at 12:30pm.
--- NOTE | 2020-08-05 10:38 | NUR ---
[facility] ISSAQUAH IS STILL REVIEWING REFERRAL.
--- NOTE | 2020-08-05 11:08 | NUR ---
case management contacted patient's daughter and JARON Etiennedy regarding approval of discharge plan. educated her that patient has been referred and accepted at [facility] for skilled care. daughter was aware of this and stated she was inagreement with patient going to a SNF temporarily. daughter stated she would contact the rest of the family and see if they were in agreement with [facility], Rhoda stated she would get back to case management tomorrow. educated her that the referral will stay with [facility] until case management hears from the daughter
--- NOTE | 2020-08-05 11:30 | NUR ---
case management received a call from patient's daughter Rhoda. she stated she talked with her dad and he did not want patient going to [facility], Rhoda stated they have a family member that works at [facility] and they would like the referral sent there and also [facility]. educated daughter that patient's insurance is out of network with [facility]. daughter wanted the referral sent and checked anyway. case management will follow
--- NOTE | 2020-08-05 11:44 | NUR ---
[employer] OFFICER FAXED DEMOGRAPHICS TO [facility] FOR REVIEW.
[2020-08-05 12:00] VITALS: BP 111/65
--- NOTE | 2020-08-05 12:02 | NUR ---
IT INFRASTRUCTURE PROJECT MANAGER FAXED REFERRAL TO [facility] FOR REVIEW.
[2020-08-05 16:00] VITALS: BP 122/57
--- NOTE | 2020-08-05 17:21 | NUR ---
PT RESTING. RESP EASY. NO C/O VOICED.
[2020-08-05 20:00] VITALS: BP 121/54
--- NOTE | 2020-08-05 20:27 | NUR ---
REPOSTIONED FOR COMFORT AND TO HELP PREVENT BUTTOCKS WOUNDS. CLIENT HAS REPETATIVE SPEECH. ORIENTED X3 AT THIS TIME. NG PATENT AND CLAMPED FOR TESTING IN MORNING. K-RUN IN PROGRESS PER ORDERS. DRESSING INTACT TO LEFT IJMLC. CHO AND RECTAL TUBE PATENT. ABLE TO MOVES LOWER EXTREMETIES SLIGHTLY. MOVES FEET WELL. UNABLE TO MOVE UPPER EXTREMETIES BUT DOES OPEN AND CLOSE HANDS. HIGH FLOW NC ON.. ICE CHIPS AND ORAL CARE DONE
--- NOTE | 2020-08-05 22:01 | NUR ---
bsg 139 NO COVERAGE NEEDED. RESTING QUIET ON BIPAP. CHO CLAMPED FOR BLADDER TRAINING.
[2020-08-06] VITALS: BP 114/52
--- NOTE | 2020-08-06 00:54 | NUR ---
COMPLETE BEDBATH AND BED CHANGE COMPLETED. CHO PATENT FOR TIMI URINE. ORAL CARE DONE. NPO FOR MILES AT NOON. PULSE OX 88% ON 15 L HIGH FLOW O2. REFUSES BIPAP AT THIS TIME. ENCOURAGING DEEP BREATHING.
[2020-08-06 04:00] VITALS: BP 130/68
--- NOTE | 2020-08-06 05:02 | NUR ---
INCREASE MOVEMENT OF LEFT ARM NOTED THIS SHIFT. LABS SENT BIPAP REMAINS ON. PULSE OX 89-90. NO DISTRESS NOTED
--- NOTE | 2020-08-06 05:10 | NUR ---
24 HR chart check completed.
--- NOTE | 2020-08-06 05:29 | NUR ---
REFUSING TO WEAR BIPAP ANY LONGER. ORAL CARE DONE. NC HIGH FLOW ON
[2020-08-06 05:41] LABS: CHLORIDE 115 mmol/L (98-107); CREATININE 0.49 mg/dL (0.55-1.02); LDH 551 U/L (84-246); POTASSIUM 3.5 mmol/L (3.5-5.1); SODIUM 149 mmol/L (136-145)
[2020-08-06 05:42] LABS: BUN 28 mg/dl (7-24)
--- NOTE | 2020-08-06 05:57 | NUR ---
SLEPT POOR LAST NIGHT. SLEPT APPROX 1 HOUR. POOR SHORT TERM MEMORY NOTED. REORIENTATION PROVIDED
[2020-08-06 06:12] LABS: BASO % 0.2 % (0.0-1.0); EOS # 0.3 10*3/uL (0.0-0.4); EOS % 2.7 % (1.0-4.0); HEMATOCRIT 30.3 % (37.0-47.0); LYMPH # 0.7 10*3/uL (1.3-4.4); LYMPH % 6.2 % (27.0-41.0); MEAN CORPUSCULAR HGB 29.2 pg (27.0-31.0); MEAN CORPUSCULAR HGB CONC 30.7 g/dl (33.0-37.0); MEAN PLATELET VOLUME 11.2 fl (9.6-12.3); MONO # 0.4 10*3/uL (0.1-1.0); MONO % 3.8 % (3.0-9.0); NEUT # 9.4 10*3/uL (2.3-7.9); NEUT % 86.3 % (47.0-73.0); NUCLEATED RED BLOOD CELL 0.1 10*3/uL (0.0-0.0); NUCLEATED RED BLOOD CELL 0.5 % (0.0-0.0); PLATELET COUNT AUTOMATED 109 10*3/uL (130-400); RED BLOOD COUNT 3.19 10*6/uL (4.10-5.10); RED CELL DISTRI WIDTH 15.9 % (0-14.5); WHITE BLOOD COUNT 10.9 10*3/uL (4.8-10.8)
--- NOTE | 2020-08-06 06:45 | NUR ---
DAUGHTER VITOR CALLED IN. UPDATE PROVIDED. QUESTIONS ANSWERED
[2020-08-06 08:00] VITALS: BP 124/61
--- NOTE | 2020-08-06 08:58 | NUR ---
APPLICATION PERFORMANCE ENGINEER FAXED COMPLETED REFERRAL TO [facility] FOR REVIEW.
--- NOTE | 2020-08-06 09:05 | NUR ---
Occupational Therapy evaluation completed on ICCU with full evaluation to follow. Recommend occupational therapy per plan of care and SNF vs LTACH pending patient progression upon discharge. Thank you for this referral. Suri Hand OTR/L
--- NOTE | 2020-08-06 09:15 | NUR ---
PHYSICAL THERAPY Physical Therapy evaluation completed in ICCU with full evaluation to follow. Recommend physical therapy per plan of care would benefit from LTACH, thank you for this referral. Nicole Alas PT
--- NOTE | 2020-08-06 10:42 | NUR ---
CONTACT ASSEMBLER SPOKE WITH [facility]. PATIENT HAS BEEN ACCEPTED BUT HER OXGYEN REQUIREMENT IS TO HIGH. FAMILY WILL BE PAYING WHAT THE DIFFERENCE IS FROM OUT OF NETWORK BENEFITS. CONTACT ASSEMBLER SPOKE TO [facility]. THEY ARE ONLY ACCEPTING COVID POSITIVE PATIENTS AT THIS TIME. ON A TYPICAL DAY THEY CAN ONLY HANDLE 6L OF OXYGEN. PATIENT HAS IS NOW TESTING NEGATIVE FOR COVID.
[2020-08-06 12:00] VITALS: BP 136/70
--- NOTE | 2020-08-06 12:00 | NUR ---
DIET LUNCH ATE WELL. VSS. NO DISTRESS. JHOAN HAYNESRN
--- NOTE | 2020-08-06 13:14 | NUR ---
MILES rescheduled ro 08/07/20.. time will be determined by surgery's schedule.
[2020-08-06 16:00] VITALS: BP 129/69
--- NOTE | 2020-08-06 19:16 | NUR ---
TRIED TO PUT PT ON BIPAP AT THIS TIME. SHE STATES SHE IS NOT READY. RN SAID SHE GETS UPSET AND DROPS HER SAO2 FAST WHEN UPSET AND NOT TO PUSH HER. PT COMFORTABLE AND NO DISTRESS.
--- NOTE | 2020-08-06 19:36 | NUR ---
DESATS WITH ANY MAJOR MOVEMENT. REFUSES BIPAP. CURRENTLY ON 15L HIGH FLOW AND VENTURI MASK. RESP THERAPY AT BEDSIDE. SATTING 88%
[2020-08-06 20:00] VITALS: BP 137/62
--- NOTE | 2020-08-06 20:21 | NUR ---
DR COLEY NOTIFIED OF RESP STATUS. NO NEW ORDERS
--- NOTE | 2020-08-06 20:45 | NUR ---
BIPAP REAPPLIED. PULSE OX 92%. TALKED WITH JARON. SHE WANTS TO TALK TO HER FATHER ABOUT REINTUBATION
--- NOTE | 2020-08-06 21:04 | NUR ---
CLIENT RESTING COMFORTABLE ON BIPAP. PO [phone]. NOTIFIED POA. ALL QUESTIONS ANSWERED
[2020-08-07] VITALS: BP 132/66
--- NOTE | 2020-08-07 00:05 | NUR ---
ALL ATTEMPTS TO CALM CLIENT FAILED. REDIRECTED, 1:1 TV. KEEPS YELLING TAKE IT OFF I CAN'T BREATH (BIPAP). ORAL CARE AND REPOSITIONING INEFFECTIVE. HALDOL GIVEN IM PER ORDERS. WILL CONTINUE TO MONITOR
--- NOTE | 2020-08-07 02:14 | NUR ---
HALDOL INEFFECTIVE AT THIS TIME. 24 HR chart check completed.
[2020-08-07 04:00] VITALS: BP 130/67
--- NOTE | 2020-08-07 04:21 | NUR ---
POA CALLED IN. FULL UPDATE PROVIDED. STATES SHE IS GOING TO TALK WITH CLIENTS SPOUSE ABOUT DNR ARREST WITH INTUBATION. STATES PT VERBALIZED SHE DID NOT EVERY WANT ON A VENTILATOR. WILL CALL BACK LATER TODAY
[2020-08-07 05:55] LABS: BASO % 0.1 % (0.0-1.0); EOS # 0.1 10*3/uL (0.0-0.4); EOS % 0.9 % (1.0-4.0); LYMPH # 0.7 10*3/uL (1.3-4.4); LYMPH % 6.7 % (27.0-41.0); MEAN CELL VOLUME 94.7 fl (81.0-99.0); MEAN CORPUSCULAR HGB 29.5 pg (27.0-31.0); MEAN CORPUSCULAR HGB CONC 31.1 g/dl (33.0-37.0); MEAN PLATELET VOLUME 11.2 fl (9.6-12.3); MONO # 0.2 10*3/uL (0.1-1.0); MONO % 2.4 % (3.0-9.0); NEUT # 8.8 10*3/uL (2.3-7.9); NEUT % 89.4 % (47.0-73.0); PLATELET COUNT AUTOMATED 82 10*3/uL (130-400); RED BLOOD COUNT 2.85 10*6/uL (4.10-5.10); RED CELL DISTRI WIDTH 14.9 % (0-14.5); WHITE BLOOD COUNT 9.9 10*3/uL (4.8-10.8)
[2020-08-07 06:05] LABS: ALBUMIN 1.8 gm/dl (3.1-4.5); ALKALINE PHOSPHATASE 93 U/L (45-117); CHLORIDE 111 mmol/L (98-107); POTASSIUM 3.1 mmol/L (3.5-5.1); SGOT/AST 32 IU/L (3-35); SGPT/ALT 42 U/L (12-78); SODIUM 147 mmol/L (136-145); TOTAL PROTEIN 5.1 gm/dL (6.4-8.2)
[2020-08-07 06:12] LABS: BUN 18 mg/dl (7-24)
[2020-08-07 08:00] VITALS: BP 128/58
--- NOTE | 2020-08-07 10:44 | NUR ---
HONEY RECEIVED CALL FROM PATIENTS DAUGHTER IN LAW CHAR. SHE IS CONCERNED ABOUT THIS PATIENTS QUALITY OF LIFE. SHE STATED THAT SHE WANTS TO HAVE A FAMILY MEETING WITH PATIENTS TO DISCUSS HOSPICE AND WILL BE DOING SO SOON. SHE ALSO STATED THAT SHE WONDERED IF THE TEST THE PATIENT IS SET FOR CAN BE AVOIDED IF HOSPICE IS INVOLVED HONEY EXPLAINED YES IT WOULD BE. HONEY EXPLAINED I WOULD SPEAK WITH THE DOCTORS AND WILL AWAIT TO HEAR FROM HERE. WHEN ASKED IF THEY HAD A HOSPICE COMPANY IN [place] SHE STATED SHE DID NOT HAVE ONE AND ANY COMPANY WOULD BE FINE. HONEY WILL WAIT TO HEAR BACK FROM FAMILY ABOUT HOSPICE. HONEY WILL SEND REFERRAL TO BE LOOKED AT BY [facility] AND WILL LET THEM KNOW FAMILY IS STILL DECIDING.
--- NOTE | 2020-08-07 11:03 | NUR ---
PERSONAL COACH SPOKE WITH [facility] AND EXPLAINED NEW REFERRAL. HONEY EXPLAINED WAITING ON FINAL OKAY FROM FAMILY. SILVIA UNDERSTOOD.
[2020-08-07 12:00] VITALS: BP 135/67
--- NOTE | 2020-08-07 12:18 | NUR ---
SLAT BASKET MAKER HELPER MACHINE RECEIVED VOICE MESSAGE FROM THIS PATIENTS DAUGHTER IN LAW CHAR WILL. SHE ASKED THAT THIS SLAT BASKET MAKER HELPER MACHINE REACH OUT TO THIS PATIENTS JUANA. SLAT BASKET MAKER HELPER MACHINE CONTACTED THIS PATIENTS SLAT BASKET MAKER HELPER MACHINE EXPLAINED HOSPICE SERVICES. SLAT BASKET MAKER HELPER MACHINE EXPLAINED THAT THIS PATIENT WOULD LIKELY QUALIFY FOR INPATIENT HOSPICE. SLAT BASKET MAKER HELPER MACHINE EXPLAINED WE COULD HAVE HOSPICE REACH OUT TO HIS TO DISCUSS WHAT THEY WOULD BE ABLE TO PROVIDE FOR THIS PATIENT. PATIENT STATED THAT HE WANTED TO TALK TO HIS OTHER TWO DAUGHTERS FIRST BEFORE MAKING A FINAL DECISION. SLAT BASKET MAKER HELPER MACHINE EXPLAINED THIS SLAT BASKET MAKER HELPER MACHINE UNDERSTOOD AND WOULD AWAIT HIS RETURN CALL. SLAT BASKET MAKER HELPER MACHINE CONTACTED DAUGHTER IN LAW CHAR BACK ([phone]) HONEY EXPLAINED RECEIVED VOICEMAIL AND CALLED. SHE STATED THAT SHE WOULD SPEAK TO HER SISTER IN LAWS AND HAVE THEM REACH OUT TO THIS PATIENTS . SHE ALSO ASKED THAT THE DOCTORS CALL AND FOLLOW UP WITH THIS PATIENTS . SLAT BASKET MAKER HELPER MACHINE SPOKE WITH RN HOSPITALIST COORDINATOR MIC.
--- NOTE | 2020-08-07 12:28 | NUR ---
PHYSICAL THERAPY Patient presented to therapy in supine in bed in ICCU-9 with BI-PAP machine at 12:20 PM with patient nodding head in the affirmative to agree to Physical Therapy treatment. Patient was identified by name nd on wristband. Patient O2 SAT was recorded as 89% - 90% on BI-PAP. Patient received SUPINE AAROM bilateral LE ther ex and passive stretching to the LEs in order to improve patient's strength and alleviate tight musculature. Patient's O2 SATS dropped and the ther ex had to be stopped. Patient's NURSE, YAIMA CRENSHAW was consulted before this CUSTODIAL SERVICES MANAGER treated patient. STEPHEN Harris present as witness to this treatment. Patient left in supine with head of bed elevated and ICCU Nursing staff present. Patient was 1:1 with this CUSTODIAL SERVICES MANAGER FOR 12 MINUTES TOTAL. VALENTINO GARCIA CUSTODIAL SERVICES MANAGER
--- NOTE | 2020-08-07 12:30 | NUR ---
OT NOTE Pt was seen this P.M. 1:1 for 15 minute OT session. Upon arrival pt was supine in bed. Pt identified by name and on wrsitband. Pt presented to therapy with BIPAP in place which remained in place throughout the entire session. Prior to start of activity pt's nurse reported that pt's SpO2 is to be 89% or higher, if it is to drop below 89% to stop activity. Pt's resting SpO2 reading 94%. Pt completed 1 X 5 BUE AA/PROM to elbow and digit joints and pt's SpO2 remained within functional limits. After 1 X 3 of shoulder flexion pt's SpO2 dropped to 88% and within aprox 30 seconds then read 90%. Treatment was ended at this time and pt left supine in bed with head elevated and ICCU nurse notified. Continue with POC as able. STEPHEN Jama/Jabari
--- NOTE | 2020-08-07 12:46 | NUR ---
CBX OPERATOR SPOKE WITH INPATIENT FLAME CUTTING MACHINE OPERATOR HELPER BELEN Solis. HE STATED IT WAS OKAY FOR THIS PATIENTS TO COME IN TO SEE THE PATIENT. CBX OPERATOR SPOKE WITH DR. ZUNIGA AND EXPLAIN THIS TO HIM. HE STATED HE WOULD LET THE PATIENT KNOW WHEN SPEAKING TO HIM.
--- NOTE | 2020-08-07 13:33 | NUR ---
DR. ZUNIGA IN TO CASE MANAGEMENT OFFICE. SHEET ROCK HANGER RECEIVED HOSPICE ORDER. SHEET ROCK HANGER FAXED HOSPICE ORDER TO [facility].
--- NOTE | 2020-08-07 13:38 | NUR ---
SLEEPING AFTER MEDIACTED WITH HERBIE @ 1100 AWAITING HOSPICE & TO COME
--- NOTE | 2020-08-07 15:03 | NUR ---
[facility] HERE - SPOKE WITH & PATIENT - PT ASSESSED. DR MONTILLA MADE AWARE
--- NOTE | 2020-08-07 15:55 | NUR ---
OCCUPATIONAL THERAPY CO-SIGN I approve of the Occupational Therapy notes written above. YANCI VALERA, OTR/L
--- NOTE | 2020-08-07 15:56 | NUR ---
PHYSICAL THERAPY CO-SIGN I approve of the Physical Therapy notes written above. Nicole Alas PT
[2020-08-09 15:10] LABS: AMPHOTERICIN B MIC 1.0 ug/mL (.); FLUCYTOSINE MIC >64.0 ug/mL (.); ITRACONAZOLE MIC 0.06 ug/mL (.); KETOCONAZOLE MIC 0.03 ug/mL (.); YEAST ID Candida albicans (.)
== END 2020-08-07 15:49 | disposition hospice, home (50) | DRG 870 ==
LOC: ED 15:37 → ICCU 17:24 → 4E 17:24 → EDHOLD 17:24 → 4E 23:27 → ICCU 07-21 10:30
PROVIDERS: Emergency Medicine; Internal Medicine; Internal Medicine Critical Care Medicine; Student in an Organized Health Care Education/Training Program; ADMIT Student in an Organized Health Care Education/Training Program; ATTEND Student in an Organized Health Care Education/Training Program
PROC: XW033E5 Introduction of Remdesivir Anti-infective into Peripheral Vein, Percutaneous Approach, New Technology Group 5 (ICD-10-PCS; 2020-07-20)
PROC: 5A0935A Assistance with Respiratory Ventilation, Less than 24 Consecutive Hours, High Flow/Velocity Cannula (ICD-10-PCS; 2020-07-21)
PROC: 03HY32Z Insertion of Monitoring Device into Upper Artery, Percutaneous Approach (ICD-10-PCS; 2020-07-21)
PROC: 4A133B1 Monitoring of Arterial Pressure, Peripheral, Percutaneous Approach (ICD-10-PCS; 2020-07-21)
PROC: 4A133J1 Monitoring of Arterial Pulse, Peripheral, Percutaneous Approach (ICD-10-PCS; 2020-07-21)
PROC: 0BH17EZ Insertion of Endotracheal Airway into Trachea, Via Natural or Artificial Opening (ICD-10-PCS; principal; 2020-07-23)
PROC: 5A1955Z Respiratory Ventilation, Greater than 96 Consecutive Hours (ICD-10-PCS; 2020-07-23)
PROC: 5A09357 Assistance with Respiratory Ventilation, Less than 24 Consecutive Hours, Continuous Positive Airway Pressure (ICD-10-PCS; 2020-07-23)
PROC: 02HV33Z Insertion of Infusion Device into Superior Vena Cava, Percutaneous Approach (ICD-10-PCS; 2020-07-23)
PROC: B548ZZA Ultrasonography of Superior Vena Cava, Guidance (ICD-10-PCS; 2020-07-23)
PROC: 30233N1 Transfusion of Nonautologous Red Blood Cells into Peripheral Vein, Percutaneous Approach (ICD-10-PCS; 2020-07-28)
PROC: 02HV33Z Insertion of Infusion Device into Superior Vena Cava, Percutaneous Approach (ICD-10-PCS; 2020-07-29)
PROC: B548ZZA Ultrasonography of Superior Vena Cava, Guidance (ICD-10-PCS; 2020-07-29)
PROC: 5A09457 Assistance with Respiratory Ventilation, 24-96 Consecutive Hours, Continuous Positive Airway Pressure (ICD-10-PCS; 2020-08-03)
PROC: 5A0945A Assistance with Respiratory Ventilation, 24-96 Consecutive Hours, High Flow/Velocity Cannula (ICD-10-PCS; 2020-08-05)
PROC: 5A09357 Assistance with Respiratory Ventilation, Less than 24 Consecutive Hours, Continuous Positive Airway Pressure (ICD-10-PCS; 2020-08-07)
DX: A41.9 Sepsis, unspecified organism (principal); T80.211A Bloodstream infection due to central venous catheter, initial encounter; U07.1 COVID-19; J12.89 Other viral pneumonia; E43 Unspecified severe protein-calorie malnutrition; J80 Acute respiratory distress syndrome; K85.90 Acute pancreatitis without necrosis or infection, unspecified; D68.59 Other primary thrombophilia; E87.0 Hyperosmolality and hypernatremia; D62 Acute posthemorrhagic anemia; K92.2 Gastrointestinal hemorrhage, unspecified; J95.851 Ventilator associated pneumonia; R65.20 Severe sepsis without septic shock; B37.9 Candidiasis, unspecified; Z66 Do not resuscitate; F41.0 Panic disorder [episodic paroxysmal anxiety]; M19.90 Unspecified osteoarthritis, unspecified site; R80.9 Proteinuria, unspecified; E87.8 Other disorders of electrolyte and fluid balance, not elsewhere classified; D72.810 Lymphocytopenia; R79.89 Other specified abnormal findings of blood chemistry; E66.9 Obesity, unspecified; E87.6 Hypokalemia; E83.39 Other disorders of phosphorus metabolism; R53.81 Other malaise; E83.41 Hypermagnesemia; J98.2 Interstitial emphysema; E11.65 Type 2 diabetes mellitus with hyperglycemia; L89.92 Pressure ulcer of unspecified site, stage 2; I95.9 Hypotension, unspecified; D69.6 Thrombocytopenia, unspecified; R13.12 Dysphagia, oropharyngeal phase; B95.7 Other staphylococcus as the cause of diseases classified elsewhere; Y84.8 Other medical procedures as the cause of abnormal reaction of the patient, or of later complication, without mention of misadventure at the time of the procedure; Y92.238 Other place in hospital as the place of occurrence of the external cause; Z90.49 Acquired absence of other specified parts of digestive tract; Z88.5 Allergy status to narcotic agent; Z90.710 Acquired absence of both cervix and uterus; Z68.36 Body mass index [BMI] 36.0-36.9, adult

== ENCOUNTER 2020-08-07 16:03 | Inpatient (IN) | payer OTHER ==
[~2020-08-07] VITALS: Ht 149.9 cm; Wt 82.1 kg
[~2020-08-07 16:03] MED LIST changes: +CARTIA XT300 MG PO; +PROMETHAZINE DM
[2020-08-07 16:20] VITALS: BP 139/73
--- NOTE | 2020-08-07 16:20 | NUR ---
Time: 1619 A 80 year old FEMALE admitted to ICCU under services of [facility]. WOOL SHEARING SUPERVISOR MADE AWARE. RIJ-MLC REMAINS INTACT DOES THE CHO CATHETER. THE PREVIOUS RECTAL CHO WAS REMOVED (HAD GREEN DRAINAGE)..FAMILY AT BEDSIDE. FAMILY PREFERRED NO DISCHARGE OR ADM WOUND PHOTOS BRENNAN JOEL
--- NOTE | 2020-08-07 16:47 | NUR ---
PHARMACY CALLED ABOUT CODEINE ALLERGY
--- NOTE | 2020-08-07 17:32 | NUR ---
ORDERS FROM DR ZUNIGA AFTER [facility] SPOKE WITH DR CABRERA ABOUT ALLERGY TO CODIENE. REQUESTED FENTANYL DRIP & INCREASE ATIVAN WELL PRN FENTANYL
--- NOTE | 2020-08-07 18:36 | NUR ---
TOOK SUITCASE - DAUGHTER VITOR IS TAKING THE PATIENT'S PURSE, GLASSES & DENTURES AND CELL PHONE..FENTANYL DRIP HUNG AT 20mcg VIA LIJ-MLC..NGT REMOVED... PATIENT PLACED ON 10LHFNC
--- NOTE | 2020-08-07 19:20 | NUR ---
REPORT TO ONCOMING NURSE - FAMILY REMAINS AT BEDSIDE
--- NOTE | 2020-08-07 19:20 | NUR ---
REPORT RECEIVED FROM YAIMA CRENSHAW. FAMILY AT BEDSIDE. ASSESSMENT COMPLETE. [address]
--- NOTE | 2020-08-07 19:32 | NUR ---
PATIENTS FAMILY AT BEDSIDE AND REQUESTING PATIENT GET AN EXTRA DOSE OF FENTANYL. PATIENT MEDICATED WITH PRN FENTANYL AND RESTING COMFORTABLY. WILL MONITOR.
--- NOTE | 2020-08-07 20:32 | NUR ---
FENTANYL APPEARS TO BE EFFECTIVE.
--- NOTE | 2020-08-07 21:42 | NUR ---
PATIENT STARTING TO GET AGITATED AND OPENING HER EYES. MEDICATED WITH PRN ATIVAN. WILL ASSESS EFFECTIVENESS. FAMILY STILL AT BEDSIDE.
[2020-08-07 22:00] VITALS: BP 125/59
--- NOTE | 2020-08-07 22:42 | NUR ---
PATIENT RESTING COMFORTABLY IN BED. NO S/S OF DISTRESS NOTED. ATIVAN APPEARS TO BE EFFECTIVE.
--- NOTE | 2020-08-07 22:52 | NUR ---
PATIENT RESTING IN BED. RESPS 30/MIN. NO S/S OF DISCOMFORT NOTED. WILL CONTINUE TO MONITOR.
--- NOTE | 2020-08-07 23:58 | NUR ---
24 HR chart check completed.
[2020-08-08] VITALS: BP 97/44
--- NOTE | 2020-08-08 00:16 | NUR ---
MEDICATED WITH PRN FENTANYL FOR NOTED S/S OF DISTRESS RESPS 28/MIN. WILL MONITOR EFFECTIVENESS.
--- NOTE | 2020-08-08 01:16 | NUR ---
PATIENT RESTING COMFORTABLY. MEDICATION EFFECTIVE.
--- NOTE | 2020-08-08 02:35 | NUR ---
PATIENT AT THIS TIME. VERIFIED BY THIS RN AND DHARMESH STEWART RN.
--- NOTE | 2020-08-08 02:35 | NUR ---
PATIENT FENTANYL DRIP STOPPED AT THIS TIME. WASTED REMAINING AMOUNT WITH PATRICK JUSTICE RN. 250MLS WASTED. PAPER FILLED OUT AND SENT TO PHARMACY.
--- NOTE | 2020-08-08 02:37 | NUR ---
COMPUTER TYPESETTER, VITOR NOTIFIED PATIENT .
--- NOTE | 2020-08-08 02:39 | NUR ---
NOTIFIED THAT PATIENT .
--- NOTE | 2020-08-08 02:46 | NUR ---
, JUANA WILL NOTIFIED OF HIS WIFES PASSING. STATES HIM AND HIS DAUGHTERS WILL BE IN TO SEE HER.
--- NOTE | 2020-08-08 03:20 | NUR ---
AND TWO DAUGHTERS AT BEDSIDE
--- NOTE | 2020-08-08 03:40 | NUR ---
FAMILY LEFT AT THIS TIME AND TOOK ALL OF PATIENTS BELONGINGS WITH THEM.
--- NOTE | 2020-08-08 03:45 | NUR ---
[facility] NOTIFIED OF PATIENTS . SPOKE WITH DRISS. ALL QUESTIONS WERE ANSWERED.
--- NOTE | 2020-08-08 04:00 | NUR ---
LEFT IJ AND CHO REMOVED.
--- NOTE | 2020-08-08 04:12 | NUR ---
[facility] NOTIFIED PATIENT AT [phone].
--- NOTE | 2020-08-08 04:23 | NUR ---
[facility] coroner's Investigatory, Mary Heredia, notified of patient's as patient was readmitted as hospice patient on 08/07/2020. Case reviewed. Patient released to go to the home of family's choice.
--- NOTE | 2020-08-08 05:22 | NUR ---
PATIENT RELEASED TO [facility] AT THIS TIME. CLIFFORD SOLIS
== END 2020-08-08 06:03 | disposition expired | DRG 177 ==
LOC: ICCU 16:03 → 4E 18:36
PROVIDERS: ADMIT Student in an Organized Health Care Education/Training Program; ATTEND Student in an Organized Health Care Education/Training Program
PROC: 5A09357 Assistance with Respiratory Ventilation, Less than 24 Consecutive Hours, Continuous Positive Airway Pressure (ICD-10-PCS; principal; 2020-08-07)
PROC: 5A0935A Assistance with Respiratory Ventilation, Less than 24 Consecutive Hours, High Flow/Velocity Cannula (ICD-10-PCS; 2020-08-08)
DX: U07.1 COVID-19 (principal); J96.01 Acute respiratory failure with hypoxia; J12.89 Other viral pneumonia; Z51.5 Encounter for palliative care